=== PATIENT | female | born 1955 | race Caucasian/White ===

== ENCOUNTER 2019-01-11 14:56 | Inpatient (IN) | payer BC ==
[~2019-01-11 14:56] MED LIST: DEXAMETHASONE SOD PHOSPHATE INJ 4 MG/1 ML VIAL ONE; GLYCOPYRROLATE 1 MG/5 ML VIAL ONE; NEOSTIGMINE METHYLSULFATE 10 MG/10 ML VIAL ONE; ONDANSETRON HCL INJ/PF 4 MG/2 ML SDV ONE; PHENYLEPHRINE HCL INJ/PF 10 MG/1 ML SDV ONE; ROCURONIUM BROMIDE INJ 50 MG/5 ML VIAL IV ONE; SUCCINYLCHOLINE CHLORIDE INJ 200 MG/10 ML VIAL ONE
[2019-01-11] MEDS ORDERED: NORMAL SALINE 1000 ML 1,000 ML IV ONE (15:48)
[2019-01-11] MEDS ORDERED: PIPERACILLIN/TAZOBACTAM 3.375 GM VIAL IV ONE (15:52)
[2019-01-11] MEDS ORDERED: VANCOMYCIN HCL INJ 1000 MG VIAL IV ONE (15:52)
[2019-01-11 15:54] LABS: ABSOLUTE BASOPHILS # (AUTO) 0.1 10^3/uL (0.0-0.2); ABSOLUTE EOSINOPHILS # (AUTO) 0.1 10^3/uL (0.0-0.6); ABSOLUTE LYMPHOCYTES (AUTO) 1.2 10^3/uL (0.5-4.7); ABSOLUTE NEUT (AUTO) 15.2 10^3/uL (1.7-8.2); BASOPHILS % (AUTO) 0.3 % (0-2); EOSINOPHILS % (AUTO) 0.4 % (0-6); HEMATOCRIT 35.5 % (36.0-47.0); HEMOGLOBIN 11.7 g/dL (12.0-15.5); LYMPHOCYTES % (AUTO) 6.9 % (13-45); MEAN CORPUSCULAR HEMOGLOBIN 28.7 pg (27.0-33.4); MEAN CORPUSCULAR HGB CONC 33.1 g/dL (32.0-36.0); MEAN CORPUSCULAR VOLUME 87 fl (80-97); MONOCYTES % (AUTO) 5.8 % (3-13); PLATELET COUNT 174 10^3/uL (150-450); RED BLOOD COUNT 4.09 10^6/uL (3.72-5.28); RED CELL DISTRIBUTION WIDTH 16.6 % (11.5-14.0); SEGMENTED NEUTROPHILS % (AUTO) 86.6 % (42-78); TOTAL CELLS COUNTED % (AUTO) 100 %; WHITE BLOOD COUNT 17.5 10^3/uL (4.0-10.5)
[2019-01-11 16:01] LABS: INTERNATIONAL RATION (INR) 1.14; PROTHROMBIN TIME 14.6 SEC (11.4-15.4)
[2019-01-11 16:04] LABS: ALBUMIN 3.7 g/dL (3.5-5.0); ALKALINE PHOSPHATASE 107 U/L (38-126); ANION GAP 6 (5-19); ASPARTATE AMINO TRANSFERASE 23 U/L (14-36); BILIRUBIN,DIRECT 0.3 mg/dL (0.0-0.4); BILIRUBIN,TOTAL 1.2 mg/dL (0.2-1.3); BLOOD UREA NITROGEN 26 mg/dL (7-20); CALCIUM 8.6 mg/dL (8.4-10.2); CARBON DIOXIDE 35 mmol/L (22-30); CHLORIDE 94 mmol/L (98-107); GLUCOSE 154 mg/dL (75-110); POTASSIUM 4.7 mmol/L (3.6-5.0)
--- NOTE | 2019-01-11 16:29 | RADIOLOGY REPORT (SQ) ---
EXAM DESCRIPTION: CHEST SINGLE VIEW COMPLETED DATE/TIME: 01/11/2019 4:02 pm REASON FOR STUDY: Sepsis alert COMPARISON: None. EXAM PARAMETERS: NUMBER OF VIEWS: One view. TECHNIQUE: Single frontal radiographic view of the chest acquired. RADIATION DOSE: NA LIMITATIONS: None. FINDINGS: LUNGS AND PLEURA: No acute infiltrates or effusions. MEDIASTINUM AND HILAR STRUCTURES: No masses. Contour normal. HEART AND VASCULAR STRUCTURES: Cardiomegaly. Pulmonary vasculature normal. HARDWARE: None in the chest. OTHER: Stimulator leads noted over mid dorsal region. Dorsal scoliosis. IMPRESSION: Cardiomegaly. TECHNICAL DOCUMENTATION: JOB ID: [id number] [employer]- All Rights Reserved Reading location - IP/workstation name: [email or web address]
--- NOTE | 2019-01-11 17:04 | RADIOLOGY REPORT (SQ) ---
EXAM DESCRIPTION: ABDOMEN 2 VIEWS COMPLETED DATE/TIME: 01/11/2019 4:36 pm REASON FOR STUDY: abd pain, weak COMPARISON: None. NUMBER OF VIEWS: Two views. TECHNIQUE: Supine and erect/decubitus radiographic images of the abdomen acquired. LIMITATIONS: None. FINDINGS: FREE AIR: None. No abnormal gas collections. LUNG BASES: Clear. BOWEL GAS PATTERN: Nonobstructive pattern. No dilated loops or air fluid levels. CALCIFICATIONS: No suspicious calcifications. SOFT TISSUES: No gross mass or suggestion of organomegaly. HARDWARE: Pacemaker. BONES: Surgical changes in spine. OTHER: No other significant finding. IMPRESSION: NO RADIOGRAPHIC EVIDENCE FOR ACUTE ABDOMINAL DISEASE. TECHNICAL DOCUMENTATION: JOB ID: [id number] [employer]- All Rights Reserved Reading location - IP/workstation name: [email or web address]
[2019-01-11 17:09] LABS: APPEARANCE,URINE SLIGHTLY-CLOUDY; BILIRUBIN,URINE NEGATIVE (NEGATIVE); COLOR,URINE YELLOW; GLUCOSE, URINE NEGATIVE (NEGATIVE); KETONES,URINE NEGATIVE (NEGATIVE); PROTEIN,URINE 30 mg/dL (NEGATIVE)
[2019-01-11 17:17] LABS: URINE AMPHETAMINES SCREEN NEGATIVE; URINE BARBITURATES SCREEN NEGATIVE; URINE BENZODIAZEPINES SCREEN NEGATIVE; URINE COCAINE SCREEN NEGATIVE; URINE MARIJUANA (THC) SCREEN NEGATIVE; URINE METHADONE SCREEN NEGATIVE; URINE PHENCYCLIDINE SCREEN NEGATIVE
[2019-01-11 17:31] LABS: VENOUS BLOOD BASE EXCESS 5.2 mmol/L; VENOUS BLOOD HCO3 33.2 mmol/L (20-32); VENOUS BLOOD PH 7.31 (7.30-7.42)
[2019-01-11 17:37] LABS: A TYPE INFLUENZA AG NEGATIVE (NEGATIVE); B INFLUENZA AG NEGATIVE (NEGATIVE)
[2019-01-11 17:39] LABS: VENOUS BLOOD PCO2 67.8 mmHg (35-63)
[2019-01-11] MEDS ORDERED: NORMAL SALINE 250 ML IV ONE (18:09)
[2019-01-11] MEDS ORDERED: NORMAL SALINE 1000 ML 1,000 ML IV PRN (18:20)
--- NOTE | 2019-01-11 18:31 | RADIOLOGY REPORT (SQ) ---
EXAM DESCRIPTION: CT ABD/PELVIS NO ORAL OR IV COMPLETED DATE/TIME: 01/11/2019 5:47 pm REASON FOR STUDY: abd pain COMPARISON: None. TECHNIQUE: CT scan of the abdomen and pelvis performed with intravenous and oral contrast using beckie simran scanning technique with dynamic intravenous contrast injection. Images reviewed with lung, soft t issue, and bone windows. Reconstructed coronal and sagittal MPR images reviewed. Delayed images for e valuation of the urinary system also acquired. All images stored on PACS. All CT scanners at this facility use dose modulation, iterative reconstruction, and/or weight based d osing when appropriate to reduce radiation dose to as low as reasonably achievable (ALARA). [facility]: Dose Right [facility]: CareDose [facility]: Dose Right [facility]: Teradose 4D [facility]: [employer]SC [employer] CONTRAST TYPE AND DOSE: contrast/concentration: Isovue 350.00 mg/ml; Total Contrast Delivered: 100.0 ml; Total Saline Delivered: 56.0 ml RENAL FUNCTION: Creatinine: 1.06 RADIATION DOSE: CT Rad equipment meets quality standard of care and radiation dose reduction techniq ues were employed. CTDIvol: 20.7 - 20.8 mGy. DLP: 2469 mGy-cm.. LIMITATIONS: None. FINDINGS: LOWER CHEST: Chronic interstitial changes/left basilar atelectasis with left pleural thick ening. . LIVER: No abnormality. There is pneumobilia. The findings could represent post cholecystectomy nichole ges. SPLEEN: Normal size. No focal lesions. PANCREAS: No masses. No significant calcifications. No adjacent inflammation or peripancreatic fluid collections. Pancreatic duct not dilated. GALLBLADDER: Status post cholecystectomy. Changes of pneumobilia. ADRENAL GLANDS: No significant masses or asymmetry. RIGHT KIDNEY AND URETER: No solid masses. No significant calcification. No hydronephrosis or hydroure ter. LEFT KIDNEY AND URETER: No solid masses. No significant calcification. No hydronephrosis or hydrouret er. AORTA AND VESSELS: No aneurysm. No dissection. Renal arteries, SMA, celiac without stenosis. RETROPERITONEUM: No retroperitoneal adenopathy, hemorrhage or masses. BOWEL AND PERITONEAL CAVITY: There is evidence of marked constipation with fecal material throughout the entire colon. At the junction of the rectosigmoid and descending colon there is expanded lumen o f rectosigmoid colon containing a large amount of fecal material measuring 8.4 x 7.8 cm. There is ev idence of rupture of the colon and surrounding pericolonic air extending into the mesentery. (Image n umber [id number] series 5). Distal to this level there is mucosal thickening noted with possibility of a mucosal lesion in this region not excluded (image number [id number] 61/[id number] series 5). Significant pre sacral air is identified. APPENDIX: Normal. PELVIS: Urinary bladder: Distended. Uterus: Absent. ABDOMINAL WALL: No masses. No hernias. BONES: Changes of previous lumbar fusion and laminectomy. OTHER: Extensive retroperitoneal air. Large collection of air extending into the ry IMPRESSION: 1. Findings consistent with a ruptured rectosigmoid colon at the level of a large fecal ith within the rectosigmoid colon expanding the lumen. The possibility of mucosal abnormality distal to the ruptured colon not be excluded. Extensive retroperitoneal air and air within the mesentery. Marked constipation. COMMENT: The findings were discussed with the ER physician and surgeon. TECHNICAL DOCUMENTATION: JOB ID: [id number] Quality ID # [id number]: Final reports with documentation of one or more dose reduction techniques (e.g., Au tomated exposure control, adjustment of the mA and/or kV according to patient size, use of iterative reconstruction technique) 2010 [employer]- All Rights Reserved Reading location - IP/workstation name: [email or web address]
--- NOTE | 2019-01-11 19:01 | PDOC H&P ---
History of Present Illness Admission Date/PCP: 01/11/19 Patient complains of: Abdominal pain, obtunded status History of Present Illness: ALYSON RIVERA is a 63 year old female, morbidly obese, on steroid for lupus daily, with hypothyroidism, hypertension, diffuse arthritis, status post plac ement of back stimulator, who complained of generalized weakness and malaise yesterday evening. There is been worsening of the symptoms throughout the night. According to the , she took 1 dose of powerful laxative because she felt constipated sometimes during the night. This morning patient felt more sick and she was brought to the emergency room by the in the afternoon. In the emergency department, she appeared to be obtunded, very difficult to to awake, no moving all extremities, and responsive only to deep painful physical stimuli. Her most recent blood pressure is 129/67 with a heart rate of 123. A CT scan of the abdomen pelvis has been done revealing a large amount of free air with a possible perforation of the rectosigmoid colon, a large amount of fecal matter throughout the colon as well as the rectum. A fecolyte is identified in the rectosigmoid near the area of the perforation. In addition according to the radiologist, there is rectosigmoid mucosal thickening which is suspicious for neoplastic process. The reports that she had a negative colonoscopy done 3 years ago and she is due for colonoscopy this year. Past Medical History Cardiac Medical History: Reports: Hypertension Endocrine History Note: Hypothyroidism Musculoskeltal Medical History: Reports: Arthritis - Diffuse Musculoskeletal History Note: History of lupus for long time on chronic use of steroids some 5 mg daily Skin Medical History: Reports: Other - Please Past Surgical History Past Surgical History: Reports: Other - Back stimulator implant Social History Smoking Status: Unknown if Ever Smoked Electronic Cigarette use?: No Family History Parental Family History Reviewed: No Children Family History Reviewed: No Sibling(s) Family History Reviewed.: No Medication/Allergy Allergies/Adverse Reactions: promethazine [From Phenergan] Allergy (Unknown, Verified 01/11/19 17:14) Physical Exam Vital Signs: Temp Pulse Resp BP Pulse Ox 102.5 F H 23 H 129/67 H 96 01/11/19 17:11 01/11/19 18:30 01/11/19 18:30 01/11/19 18:30 Intake & Output 01/10/19 01/11/19 01/12/19 06:59 06:59 06:59 Intake Total 1000 Balance 1000 Weight 118 kg Results Laboratory Results: 01/11/19 15:28 01/11/19 15:18 01/11/19 01/11/19 01/11/19 15:18 15:18 15:28 WBC Cancelled RBC Cancelled Hgb Cancelled Hct Cancelled MCV Cancelled MCH Cancelled MCHC Cancelled RDW Cancelled Plt Count Cancelled Seg Neutrophils % Cancelled VBG pH VBG pCO2 VBG HCO3 VBG Base Excess Sodium 134.9 L Potassium 4.7 Chloride 94 L Carbon Dioxide 35 H Anion Gap 6 BUN 26 H Creatinine 1.06 Est GFR ( Amer) > 60 Glucose 154 H Lactic Acid 0.9 Calcium 8.6 Magnesium 2.1 Total Bilirubin 1.2 AST 23 Alkaline Phosphatase 107 Total Protein 7.0 Albumin 3.7 Lipase 10.6 L Urine Color Urine Appearance Urine pH Ur Specific Rena Lara Urine Protein Urine Glucose (UA) Urine Ketones Urine Blood Urine RBC (Auto) 01/11/19 01/11/19 01/11/19 15:28 16:47 17:20 WBC 17.5 H RBC 4.09 Hgb 11.7 L Hct 35.5 L MCV 87 MCH 28.7 MCHC 33.1 RDW 16.6 H Plt Count 174 Seg Neutrophils % 86.6 H VBG pH 7.31 VBG pCO2 67.8 H* VBG HCO3 33.2 H VBG Base Excess 5.2 Sodium Potassium Chloride Carbon Dioxide Anion Gap BUN Creatinine Est GFR ( Amer) Glucose Lactic Acid Calcium Magnesium Total Bilirubin AST Alkaline Phosphatase Total Protein Albumin Lipase Urine Color YELLOW Urine Appearance SLIGHTLY-CLOUDY Urine pH 6.0 Ur Specific Rena Lara 1.020 Urine Protein 30 H Urine Glucose (UA) NEGATIVE Urine Ketones NEGATIVE Urine Blood NEGATIVE Urine RBC (Auto) 4 01/11/19 15:18 Troponin I < 0.012 Impressions: Chest X-Ray 01/11/19 15:04 IMPRESSION: Cardiomegaly. Abdomen X-Ray 01/11/19 15:49 IMPRESSION: NO RADIOGRAPHIC EVIDENCE FOR ACUTE ABDOMINAL DISEASE. Abdomen/Pelvis CT 01/11/19 15:49 IMPRESSION: 1. Findings consistent with a ruptured rectosigmoid colon at the level of a large fecalith within the rectosigmoid colon expanding the lumen. The possibility of mucosal abnormality distal to the ruptured colon not be excluded. Extensive retroperitoneal air and air within the mesentery. Marked constipation. Assessment & Plan - Diagnosis (1) Perforated sigmoid colon Is this a current diagnosis for this admission?: Yes (2) Free intraperitoneal air Is this a current diagnosis for this admission?: Yes (3) Constipation with fecalytes Is this a current diagnosis for this admission?: Yes (4) Lupus Is this a current diagnosis for this admission?: Yes (5) Steroid dependent Is this a current diagnosis for this admission?: Yes (6) Hypothyroidism (acquired) Is this a current diagnosis for this admission?: Yes - Plan Summary Plan Summary: Assessment: Perforated rectosigmoid colon as per CT scan findings Free intraperitoneal air Obtunded neurological status with poor response except painful physical stimuli Leukocytosis 17,000 Normal lactic acid 0.9 Vital signs stable, slight tachycardia 123 Lupus on daily prednisone 5 mg oral Hypertension Plan: Emergent laparotomy, colon resection, colostomy Due to the possibility patient has a neoplasia of the perforated rectosigmoid colon according to the reading radiologist (of verbal report) and the severely obtunded status of the patient most likely secondary to sepsis, I feel like primary anastomosis of the resected colon with loop diverting ileostomy is not recommended IV fluid bolus 2 L, followed by a normal saline IV maintenance rate 125 mL/h Insert Carroll catheter Insert nasogastric tube Antibiotics vancomycin 1 g IV piggyback stat Zosyn 3.375 g IV piggyback x1 Stress dose of steroids preop (100 mg of hydrocortisone) Procedure, risks, benefits, complications, including the possibility of have been discussed with the patient's at length as the patient is unable to provide consent and/or to understand the conversation and she is not aware of the situation; his questions were answered to his satisfaction, and he consented to proceed
[2019-01-11] MEDS ORDERED: BUPIVACAINE HCL 0.5 % INJ/PF 30 ML SDV ONE (19:08)
--- NOTE | 2019-01-11 19:08 | ER Document Report ---
Entered by PIO NEUMANN SCRIBE 01/11/19 [id number] Acting as scribe for:HEATHER NESS MD ED General - General Chief Complaint: Fever Stated Complaint: FEVER Time Seen by Provider: 01/11/19 15:15 Information source: Relative Notes: 63 year old female that presents to the emergency department today with complaints of constipation, fevers, and abdominal pain beginning last night becoming much worse at 0630 this morning. History is being given by the at the bedside as the patient is somewhat altered and somnolent. states that they are visiting grand children in this area and arrived last night. states that last night the patient complained of constipation and she took colace but didn't sleep well all night. states that she woke up at 0630 this morning and "rapidly declined since then". denies any changes in medications or heart disease. TRAVEL OUTSIDE OF THE [place] IN LAST 30 DAYS: No - Related Data Allergies/Adverse Reactions: promethazine [From Phenergan] Allergy (Unknown, Verified 01/11/19 17:14) Past Medical History - General Information source: Relative - Social History Smoking Status: Unknown if Ever Smoked Cigarette use (# per day): No Chew tobacco use (# tins/day): No Frequency of alcohol use: None Drug Abuse: None Lives with: Family Family History: Reviewed & Not Pertinent Patient has suicidal ideation: No Patient has homicidal ideation: No - Medical History Notes: Lupus - Past Medical History Cardiac Medical History: Reports: Hx Hypertension Review of Systems - Review of Systems Notes: being given by at bedside Constitutional: See HPI, Fever Gastrointestinal: See HPI, Abdomen distended, Abdominal pain, Constipation Physical Exam - Vital signs Vitals: Resp BP 21 H 124/50 L 01/11/19 15:03 01/11/19 15:03 - Notes Notes: Physical Exam: General: Somnolent, does arouse to name. HEENT: Normocephalic. Atraumatic. PERRL. Extraocular movements intact. Oropharynx clear. Dry mucous membranes. Neck: Supple. Non-tender. Respiratory: No respiratory distress. Clear and equal breath sounds bilaterally. Cardiovascular: Regular rate and rhythm. Abdominal: Morbidly obese. Abdominal distension. Decreased bowel sounds. Diffuse abdominal tenderness with palpation. Back: No gross abnormalities. Extremities: Moves all four extremities. Upper extremities: Normal inspection. Normal ROM. Lower extremities: Normal inspection. No edema. Normal ROM. Neurological: Slow mumbled speech Skin: Warm. Dry. Normal color. Course - Re-evaluation Re-evalutation: 01/11/19 18:09 Radiologist called me stated that patient has perforated colon. There is no free air shown on acute abdominal series. Case was discussed with Dr. Romano. Will provide 1 L of additional fluid and start patient on fluid rate of 125 an hour. Vancomycin and Zosyn and are then hung empirically due to fever and abdominal pain concern for intra-abdominal infection. - Vital Signs Vital signs: Temp Pulse Resp BP Pulse Ox 98.8 F 91 22 H 117/52 L 99 01/13/19 12:16 01/13/19 12:00 01/13/19 12:16 01/13/19 12:16 01/13/19 12:16 - Laboratory Result Diagrams: 01/13/19 06:00 01/12/19 01:25 Laboratory results interpreted by me: 01/11/19 01/11/19 01/11/19 15:18 15:28 16:47 WBC 17.5 H Hgb 11.7 L Hct 35.5 L RDW 16.6 H Lymph % (Auto) 6.9 L Absolute Neuts (auto) 15.2 H Seg Neutrophils % 86.6 H VBG pCO2 VBG HCO3 Sodium 134.9 L Chloride 94 L Carbon Dioxide 35 H BUN 26 H Est GFR (MDRD) Non-Af 52 L Glucose 154 H Lipase 10.6 L Urine Protein 30 H Urine Urobilinogen 4.0 H Leukocyte Esterase Rfl TRACE H 01/11/19 17:20 WBC Hgb Hct RDW Lymph % (Auto) Absolute Neuts (auto) Seg Neutrophils % VBG pCO2 67.8 H* VBG HCO3 33.2 H Sodium Chloride Carbon Dioxide BUN Est GFR (MDRD) Non-Af Glucose Lipase Urine Protein Urine Urobilinogen Leukocyte Esterase Rfl - Diagnostic Test Radiology reviewed: Reports reviewed - EKG Interpretation by Me Additional EKG results interpreted by me: 01/11/19 18:27 Time 1614 Rate of 101, sinus tachycardia, right bundle branch block, no concerning ST lesions. Time 1614 Rate of 98, sinus rhythm, right bundle branch block, no concerning ST elevations, no significant change from prior Discharge - Discharge Clinical Impression: Rupture of colon Condition: Critical Disposition: ADMITTED INPATIENT Admitting Provider: Leonor Unit Admitted: ICU I personally performed the services described in the documentation, reviewed and edited the documentation which was dictated to the scribe in my presence, and it accurately records my words and actions.
[2019-01-11] MEDS ORDERED: FENTANYL CITRATE INJ/PF 250 MCG/5 ML AMPULE ONE (19:11)
[2019-01-11] MEDS ORDERED: PROPOFOL INJ 200 MG/20 ML VIAL IV ONE (19:11)
[2019-01-11] MEDS ORDERED: HYDROMORPHONE HCL INJ/PF 2 MG/ML AMPULE ONE (19:11)
[2019-01-11] MEDS ORDERED: METHYLPREDNISOLONE INJ 125 MG/2 ML SDV ONE (19:11)
[2019-01-11] MEDS ORDERED: DEXTROSE 50%-WATER 25 GM/50 ML DISP.SYRIN IV PRN (19:24)
[2019-01-11] MEDS ORDERED: DEXTROSE 40% GEL 15 GM TUBE PO PRN ×2 (19:24)
[2019-01-11] MEDS ORDERED: GLUCAGON,HUMAN RECOMB 1 MG INJ SUBCUT PRN (19:24)
[2019-01-11] MEDS ORDERED: PHARMACY COMMUNICATION ORDER MC NR (19:30)
[2019-01-11] MEDS ORDERED: PIPERACILLIN/TAZOBACTAM 4.5 GM VIAL IV PRN (20:53)
[2019-01-11 22:16] LABS: ARTERIAL BLOOD BASE EXCESS 0.8 mmol/L; ARTERIAL BLOOD FIO2 60%; ARTERIAL BLOOD H2CO3 0.86 mmol/L (1.05-1.35); ARTERIAL BLOOD HCO3 23.1 mmol/L (20-24); ARTERIAL BLOOD O2 SATURATION 99.5 % (94-98); ARTERIAL BLOOD PCO2 28.7 mmHg (35-45); ARTERIAL BLOOD PH 7.52 (7.35-7.45); ARTERIAL BLOOD PO2 194.3 mmHg (80-100)
--- NOTE | 2019-01-11 23:15 | EKG REPORT ---
SEVERITY:- ABNORMAL ECG - SINUS RHYTHM RBBB AND LPFB : Confirmed by: Gissel Collado 11-Jan-2019 23:14:22
--- NOTE | 2019-01-11 23:15 | EKG REPORT ---
SEVERITY:- ABNORMAL ECG - SINUS TACHYCARDIA RBBB AND LPFB : Confirmed by: Gissel Collado 11-Jan-2019 23:14:37
[2019-01-11 23:25] LABS: ANION GAP 8 (5-19); BLOOD UREA NITROGEN 21 mg/dL (7-20); CALCIUM 7.2 mg/dL (8.4-10.2); CHLORIDE 105 mmol/L (98-107); GLUCOSE 123 mg/dL (75-110)
[2019-01-11 23:54] LABS: CARBON DIOXIDE 24 mmol/L (22-30)
[2019-01-12] MEDS ORDERED: PIPERACILLIN/TAZOBACTAM 4.5 GM VIAL IV SCH
[2019-01-12] MEDS ORDERED: VANCOMYCIN HCL INJ 1000 MG VIAL IV PRN (01:06)
[2019-01-12] MEDS ORDERED: VANCOMYCIN HCL 1,000 MG in DEXTROSE 5%-WATER 250 ML IV ONE (01:15)
--- NOTE | 2019-01-12 01:32 | Operative Report ---
Nonrecallable Operative Report DATE OF SURGERY: 01/12/19 PREOPERATIVE DIAGNOSIS: sigmoid colon perforation, intraperitoneal free air POSTOPERATIVE DIAGNOSIS: same;. sigmoid stercoral perforated ulcer OPERATION: Rigid proctosigmoidoscopy; left subclavian vein central venous line; expiratory laparotomy; sigmoidectomy with primary anastomosis; diverting loop ileostomy SURGEON: JOSSY ANDREWS ANESTHESIA: GA TISSUE REMOVED OR ALTERED: Perforated sigmoid colon COMPLICATIONS: None ESTIMATED BLOOD LOSS: 200 INTRAOPERATIVE FINDINGS: Perforated sigmoid stercoral ulcer with severe peritoneal cavity fecal contamination PROCEDURE: The procedure was done in the operating room, the patient was placed in supine position general esthesia induced by endotracheal intubation by anesthesiologist, the patient's legs were then placed in a frog-leg position and a rigid proctosigmoidoscopy was done up to about 15 cm, the rectosigmoid mucosa appeared to be normal. However, the scope could not be advanced further despite multiple attempts and the procedure was terminated. Patient was then placed in Trendelenburg position with a towel in between the scapula; the left side of her neck and chest were prepped and draped in usual fashion; the left breast was then pulled downward forward the patient midline. The left subclavian vein was then approached without difficulty just below the midportion of the left clavicle; using a 16-gauge needle good blood return was obtained and a guidewire was inserted through the needle into superior vena cava, the needle was removed, and the insertion point of the guidewire was enlarged with #11 blade and a tissue dilator was which was then removed. A triple-lumen catheter was inserted over the guidewire into the inferior vena cava up to 16 cm. The guidewire was removed, each port of the triple-lumen catheter was then aspirated and flushed with normal saline without difficulty. The triple-lumen catheter was secured to the skin with silk sutures and sterile dressings were applied. The abdomen was then prepped and draped in usual fashion. A midline incision was made from just above the umbilicus down to the symphysis pubis, the subcutaneous fat was divided with Bovie, the linea alba divided with Bovie as well and the peritoneal cavity was entered. Several adhesions between the greater omentum and anterior abdominal wall were taken down bluntly and with the LigaSure without difficulty. The peritoneal cavity was examined and an indurated sigmoid colon was identified in the pelvis. A Bookwalter retractor was then applied and the small bowel was then packed in the right upper quadrant of the abdomen using moist towels and held in position with malleable retractors. The distal sigmoid colon was found to be indurated and thickened starting from just below the superior edge of the pelvis, while the colon proximal to it was found to be normal in diameter, soft, and healthy. The sigmoid colon and the distal descending colon were taken off the retroperitoneum by dividing the peritoneum along the line of Toldt using the LigaSure; the sigmoid colon and the distal left colon were elevated without difficulty. The chosen point of transition between the normal and the diseased sigmoid colon was identified; an opening was made in the mesentery of the sigmoid colon and a ATILIO stapler with blue load was then fired to divide the proximal sigmoid colon from the diseased one; both were then from the retroperitoneum using the LigaSure and the sigmoid mesentery was divided as well. During this phase of the of the surgery, the sigmoid colon ruptured with a spillage of 3 large fecalomas into the pelvis as well as liquid stools. These were rapidly retrieved and the liquid stools were aspirated. Pelvis was irrigated; the distal sigmoid colon was then elevated off the peritoneal reflection circumferentially until good healthy rectosigmoid colon was obtained. When this was accomplished, a Contour TA stapler with a green load was used to divide the sigmoid colon just below the area of perforation. The specimen was removed from the surgical field and sent to pathology. The proximal distal end of colon was found to be easily approximated without tension. At this point, the staple line of each colonic end was divided with Bovie: the 2 ends were placed in end-to-end fashion. The anastomosis was created with a posterior layer of full-thickness 3-0 silk interrupted sutures was placed starting from each corner, equally spaced, and sequentially tied. In addition, 3-0 silk Lembert interrupted sutures were placed posteriorly to approximated the serosa of the posterior. The anterior anastomosis was done with running 3-0 Vicryl sutures;after this, interrupted 3-0 silk Lembert sutures were placed. The mesenteric defect was closed with running locking 3-0 silk suture, the peritoneal cavity was irrigated with 6 L normal saline until clear. Two round 15 F drains were placed in the right and left lower abdomen, respectively following skin incision with #15 blade and placed there the anastomosis and in the pelvis: They were secured to the skin with 2-0 nylon sutures connected to bulb suction. The Bookwalter retractor was then removed, the peritoneal cavity irrigated with warm normal saline until clear, all sponges were removed, and the count was correct x3. The cecum was then identified, the terminal ileum was followed and about 15 cm proximal to the ileocecal valve. An appropriate ileum loop was identified; a circumferential skin incision was made about 3 fingerbreadths lateral and just below the umbilicus. The anterior sheath was divided with Bovie longitudinally, the muscle fibers were split, the posterior sheath was opened with Bovie as well and the chosen loop of small bowel was threaded through the opening and kept in position with a Delma pump. Each limb of the small bowel were secured to the anterior rectus sheath with a simple 2-0 Vicryl suture. The peritoneal cavity was inspected once more, the small bowel was replaced, three #2 nylon retention sutures were placed to the abdominal wall and left untied; the anterior abdominal wall was then closed with a running #1 looped PDS suture. After this was accomplished, the retention sutures were tied loosely. The ileostomy was matured by opening the loop of small bowel on the antimesenteric border with Bovie after a red rubber catheter was threaded through an opening of the mesentery. This was secured to the skin with 3-0 nylon sutures. The edges of the opened small bowel loop were secured to the skin with a three-point 3-0 Vicryl interrupted sutures in a Peg fashion without difficulty. A 4 inch Kerlix roll soaked in Betadine, placed on the anterior abdominal wall, followed by 4 x 4's with ABDs, and tape. The ostomy flange was placed over the ileostomy together with bag. The patient harman erated procedure well and transferred intubated to the ICU in satisfactory conditions.
[2019-01-12 01:44] LABS: ARTERIAL BLOOD BASE EXCESS 0.1 mmol/L; ARTERIAL BLOOD H2CO3 1.69 mmol/L (1.05-1.35); ARTERIAL BLOOD HCO3 27.2 mmol/L (20-24); ARTERIAL BLOOD O2 SATURATION 89.6 % (94-98); ARTERIAL BLOOD PCO2 56.2 mmHg (35-45); ARTERIAL BLOOD PO2 63.3 mmHg (80-100); ARTERIAL BLOOD TOTAL CO2 28.9 mmol/L (21-25)
[2019-01-12 01:49] LABS: ARTERIAL BLOOD FIO2 60%
[2019-01-12 02:02] LABS: ANION GAP 8 (5-19); BLOOD UREA NITROGEN 21 mg/dL (7-20); CARBON DIOXIDE 27 mmol/L (22-30); CHLORIDE 104 mmol/L (98-107); GLUCOSE 156 mg/dL (75-110); POTASSIUM 4.2 mmol/L (3.6-5.0)
[2019-01-12 02:03] LABS: ABSOLUTE LYMPHOCYTES (AUTO) 1.3 10^3/uL (0.5-4.7); ABSOLUTE MONOCYTES (AUTO) 0.7 10^3/uL (0.1-1.4); ABSOLUTE NEUT (AUTO) 15.5 10^3/uL (1.7-8.2); BASOPHILS % (AUTO) 0.1 % (0-2); EOSINOPHILS % (AUTO) 0.1 % (0-6); HEMATOCRIT 29.1 % (36.0-47.0); LYMPHOCYTES % (AUTO) 7.5 % (13-45); MEAN CORPUSCULAR HEMOGLOBIN 28.8 pg (27.0-33.4); MEAN CORPUSCULAR HGB CONC 32.7 g/dL (32.0-36.0); MEAN CORPUSCULAR VOLUME 88 fl (80-97); MONOCYTES % (AUTO) 3.8 % (3-13); PLATELET COUNT 149 10^3/uL (150-450); RED CELL DISTRIBUTION WIDTH 16.8 % (11.5-14.0); SEGMENTED NEUTROPHILS % (AUTO) 88.5 % (42-78); TOTAL CELLS COUNTED % (AUTO) 100 %; WHITE BLOOD COUNT 17.5 10^3/uL (4.0-10.5)
[2019-01-12 02:04] LABS: HEMOGLOBIN 9.5 g/dL (12.0-15.5)
--- NOTE | 2019-01-12 02:05 | RADIOLOGY REPORT (SQ) ---
XR CHEST 1 VIEW EXAM DATE: 01/12/2019 12:00 AM [employer] HISTORY: Tube placement. COMPARISON: 01/11/2019 FINDINGS: The endotracheal tube is 2 cm from the sreedhar. Enteric tube terminates in the stomach. The left central venous line is in the SVC. The heart size is mildly enlarged. No large pleural effusions or pneumothorax. IMPRESSION: Support devices as above.
[2019-01-12] MEDS ORDERED: MIDAZOLAM HCL 50 MG/100 ML RTUINJ ONE (02:28)
[2019-01-12 02:29] LABS: CALCIUM 7.1 mg/dL (8.4-10.2)
[2019-01-12] MEDS: DEXTROSE 5%-LACTATED RINGERS 1,000 ML IV PRN ×2 (02:43→10:40)
[2019-01-12] MEDS ORDERED: MIDAZOLAM HCL 50 MG/100 ML RTUINJ IV PRN (02:52)
[2019-01-12] MEDS: PANTOPRAZOLE SODIUM 40 MG VIAL IV SCH ×2 (02:58→10:41)
[2019-01-12] MEDS: PIPERACILLIN SODIUM/TAZOBACTAM 4.5 GM in NORMAL SALINE 100 ML IV SCH ×4 (03:18→17:29)
[2019-01-12 03:50] LABS: ARTERIAL BLOOD BASE EXCESS -0.6 mmol/L; ARTERIAL BLOOD O2 SATURATION 98.4 % (94-98); ARTERIAL BLOOD PH 7.31 (7.35-7.45); ARTERIAL BLOOD PO2 136.4 mmHg (80-100); ARTERIAL BLOOD TOTAL CO2 27.7 mmol/L (21-25)
[2019-01-12 03:51] LABS: ARTERIAL BLOOD FIO2 80%
[2019-01-12] MEDS ORDERED: INFLUENZA QUAD (6MOS+) 2019-20 VAC 0.5 ML SYR IM ONE (04:54)
[2019-01-12] MEDS ORDERED: HYDROCORTISONE SOD SUCCINATE INJ/PF 100 MG/2 ML SDV IV SCH (06:00)
--- NOTE | 2019-01-12 09:03 | PDOC PROGRESS REPORT ---
Subjective Progress Note for:: 01/12/19 Subjective:: Patient is comfortable intubated but responsive to questions with nodding Reason For Visit: PERFORATED COLON Physical Exam Vital Signs: Temp Pulse Resp BP Pulse Ox 99.7 F 91 16 113/51 L 94 01/12/19 08:00 01/12/19 08:00 01/12/19 08:00 01/12/19 08:00 01/12/19 08:00 Intake & Output 01/11/19 01/12/19 01/13/19 06:59 06:59 06:59 Intake Total 7450 Output Total 6100 1755 275 Balance -6100 5695 -275 Weight 117.5 kg General appearance: PRESENT: mild distress, obese Respiratory exam: PRESENT: clear to auscultation tricia Cardiovascular exam: PRESENT: RRR GI/Abdominal exam: PRESENT: distended, soft, other - Midline incision covered by dressings clean dry intact; ileostomy pink with gas in the bag; right and left lower abdominal drains with a clear serosanguineous fluid Neurological exam: PRESENT: awake, oriented to person, oriented to situation Results Laboratory Results: 01/12/19 01:25 01/12/19 01:25 01/11/19 01/11/19 01/11/19 15:18 15:18 15:28 WBC Cancelled RBC Cancelled Hgb Cancelled Hct Cancelled MCV Cancelled MCH Cancelled MCHC Cancelled RDW Cancelled Plt Count Cancelled Seg Neutrophils % Cancelled Carbonic Acid HCO3/H2CO3 Ratio ABG pH ABG pCO2 ABG pO2 ABG HCO3 ABG O2 Saturation ABG Base Excess VBG pH VBG pCO2 VBG HCO3 VBG Base Excess FiO2 Sodium 134.9 L Potassium 4.7 Chloride 94 L Carbon Dioxide 35 H Anion Gap 6 BUN 26 H Creatinine 1.06 Est GFR ( Amer) > 60 Est GFR (Non-Af Amer) Glucose 154 H Lactic Acid 0.9 Calcium 8.6 Magnesium 2.1 Total Bilirubin 1.2 AST 23 Alkaline Phosphatase 107 Total Protein 7.0 Albumin 3.7 Lipase 10.6 L Urine Color Urine Appearance Urine pH Ur Specific Garber Urine Protein Urine Glucose (UA) Urine Ketones Urine Blood Urine RBC (Auto) Blood Type Antibody Screen 01/11/19 01/11/19 01/11/19 15:28 16:47 17:20 WBC 17.5 H RBC 4.09 Hgb 11.7 L Hct 35.5 L MCV 87 MCH 28.7 MCHC 33.1 RDW 16.6 H Plt Count 174 Seg Neutrophils % 86.6 H Carbonic Acid HCO3/H2CO3 Ratio ABG pH ABG pCO2 ABG pO2 ABG HCO3 ABG O2 Saturation ABG Base Excess VBG pH 7.31 VBG pCO2 67.8 H* VBG HCO3 33.2 H VBG Base Excess 5.2 FiO2 Sodium Potassium Chloride Carbon Dioxide Anion Gap BUN Creatinine Est GFR ( Amer) Est GFR (Non-Af Amer) Glucose Lactic Acid Calcium Magnesium Total Bilirubin AST Alkaline Phosphatase Total Protein Albumin Lipase Urine Color YELLOW Urine Appearance SLIGHTLY-CLOUDY Urine pH 6.0 Ur Specific Garber 1.020 Urine Protein 30 H Urine Glucose (UA) NEGATIVE Urine Ketones NEGATIVE Urine Blood NEGATIVE Urine RBC (Auto) 4 Blood Type Antibody Screen 01/11/19 01/11/19 01/11/19 20:01 21:39 21:39 WBC RBC Hgb Hct MCV MCH MCHC RDW Plt Count Seg Neutrophils % Carbonic Acid 0.86 L HCO3/H2CO3 Ratio 26:1 ABG pH 7.52 H ABG pCO2 28.7 L ABG pO2 194.3 H ABG HCO3 23.1 ABG O2 Saturation 99.5 H ABG Base Excess 0.8 VBG pH VBG pCO2 VBG HCO3 VBG Base Excess FiO2 60% Sodium Cancelled Potassium Cancelled Chloride Cancelled Carbon Dioxide Cancelled Anion Gap Cancelled BUN Cancelled Creatinine Cancelled Est GFR ( Amer) Cancelled Est GFR (Non-Af Amer) Cancelled Glucose Cancelled Lactic Acid Calcium Cancelled Magnesium Total Bilirubin AST Alkaline Phosphatase Total Protein Albumin Lipase Urine Color Urine Appearance Urine pH Ur Specific Garber Urine Protein Urine Glucose (UA) Urine Ketones Urine Blood Urine RBC (Auto) Blood Type O POSITIVE Antibody Screen NEGATIVE 01/11/19 01/12/19 01/12/19 22:26 01:25 01:25 WBC 17.5 H RBC 3.30 L Hgb 9.5 L D Hct 29.1 L MCV 88 MCH 28.8 MCHC 32.7 RDW 16.8 H Plt Count 149 L Seg Neutrophils % 88.5 H Carbonic Acid HCO3/H2CO3 Ratio ABG pH ABG pCO2 ABG pO2 ABG HCO3 ABG O2 Saturation ABG Base Excess VBG pH VBG pCO2 VBG HCO3 VBG Base Excess FiO2 Sodium 137.3 138.9 Potassium 4.0 4.2 Chloride 105 104 Carbon Dioxide 24 D 27 Anion Gap 8 8 BUN 21 H 21 H Creatinine 0.90 0.96 Est GFR ( Amer) > 60 > 60 Est GFR (Non-Af Amer) Glucose 123 H 156 H Lactic Acid Calcium 7.2 L 7.1 L Magnesium Total Bilirubin AST Alkaline Phosphatase Total Protein Albumin Lipase Urine Color Urine Appearance Urine pH Ur Specific Garber Urine Protein Urine Glucose (UA) Urine Ketones Urine Blood Urine RBC (Auto) Blood Type Antibody Screen 01/12/19 01/12/19 01:25 03:30 WBC RBC Hgb Hct MCV MCH MCHC RDW Plt Count Seg Neutrophils % Carbonic Acid 1.69 H 1.60 H HCO3/H2CO3 Ratio 16:1 16:1 ABG pH 7.30 L 7.31 L ABG pCO2 56.2 H 53.0 H ABG pO2 63.3 L 136.4 H ABG HCO3 27.2 H 26.0 H ABG O2 Saturation 89.6 L 98.4 H ABG Base Excess 0.1 -0.6 VBG pH VBG pCO2 VBG HCO3 VBG Base Excess FiO2 60% 80% Sodium Potassium Chloride Carbon Dioxide Anion Gap BUN Creatinine Est GFR ( Amer) Est GFR (Non-Af Amer) Glucose Lactic Acid Calcium Magnesium Total Bilirubin AST Alkaline Phosphatase Total Protein Albumin Lipase Urine Color Urine Appearance Urine pH Ur Specific Garber Urine Protein Urine Glucose (UA) Urine Ketones Urine Blood Urine RBC (Auto) Blood Type Antibody Screen 01/11/19 15:18 Troponin I < 0.012 Impressions: Abdomen X-Ray 01/11/19 15:49 IMPRESSION: NO RADIOGRAPHIC EVIDENCE FOR ACUTE ABDOMINAL DISEASE. Abdomen/Pelvis CT 01/11/19 15:49 IMPRESSION: 1. Findings consistent with a ruptured rectosigmoid colon at the level of a large fecalith within the rectosigmoid colon expanding the lumen. The possibility of mucosal abnormality distal to the ruptured colon not be excluded. Extensive retroperitoneal air and air within the mesentery. Marked constipation. Chest X-Ray 01/12/19 00:00 IMPRESSION: Support devices as above. Assessment & Plan - Diagnosis (1) Perforated sigmoid colon Is this a current diagnosis for this admission?: Yes (2) Free intraperitoneal air Is this a current diagnosis for this admission?: Yes (3) Constipation with fecalytes Is this a current diagnosis for this admission?: Yes (4) Lupus Is this a current diagnosis for this admission?: Yes (5) Steroid dependent Is this a current diagnosis for this admission?: Yes (6) Hypothyroidism (acquired) Is this a current diagnosis for this admission?: Yes - Time Time Spent with patient: 25-34 minutes - Plan Summary Plan Summary: Assessment: Postoperative day #0 following laparotomy, sigmoidectomy, primary anastomosis, diverting loop ileostomy for perforated sigmoid stercoral ulcer Vital signs stable patient afebrile Patient awake with hypercarbia most likely related to sedation Patient currently on pressure support Persistent leukocytosis 17.5 Remaining blood work within normal limits Nasogastric tube output 100 Carroll catheter output good 2075 mL Bilateral lower abdominal drain output scant Plan: Continue n.p.o. IV fluids Continue IV antibiotics vancomycin and Zosyn Steroid taper as per locomotive inspector down to physiologic dose Extubation today as per locomotive inspector
[2019-01-12] MEDS: ENOXAPARIN SODIUM INJ 40 MG/0.4 ML DISP.SYRIN SUBCUT SCH (10:42)
[2019-01-12] MEDS: ACETAMINOPHEN 1,000 MG/100 ML RTUPB IV SCH ×3 (11:14→23:42)
[2019-01-12 11:36] LABS: ARTERIAL BLOOD H2CO3 1.44 mmol/L (1.05-1.35); ARTERIAL BLOOD HCO3 27.5 mmol/L (20-24); ARTERIAL BLOOD O2 SATURATION 97.2 % (94-98); ARTERIAL BLOOD PCO2 47.7 mmHg (35-45); ARTERIAL BLOOD PH 7.38 (7.35-7.45); ARTERIAL BLOOD PO2 96.7 mmHg (80-100)
[2019-01-12 11:37] LABS: ARTERIAL BLOOD FIO2 50%
[2019-01-12] MEDS ORDERED: FENTANYL CITRATE INJ/PF 100 MCG/2 ML AMPUL IV PRN (11:57)
[2019-01-12] MEDS ORDERED: VANCOMYCIN HCL INJ 1000 MG VIAL IV ONE (13:00)
[2019-01-12] MEDS: HYDROCORTISONE SOD SUCCINATE INJ/PF 100 MG/2 ML SDV IV SCH ×2 (14:02→22:26)
[2019-01-12] MEDS: FENTANYL CITRATE INJ/PF 100 MCG/2 ML AMPUL IV PRN ×2 (14:03→17:15)
[2019-01-12] MEDS: VANCOMYCIN HCL 750 MG in DEXTROSE 5%-WATER 250 ML IV SCH (15:30)
[2019-01-12] MEDS: RINGERS SOLUTION,LACTATED 1,000 ML IV PRN (15:34)
--- NOTE | 2019-01-12 20:02 | PDOC PROGRESS REPORT ---
Subjective Progress Note for:: 01/12/19 Subjective:: Patient admitted to the ICU after surgery for perforated colon. Appears to be a perforation related to a stercolic ulcer. She was suitable for an and SBT this morning and was placed on a weaning profile. She was able to lift her head and follow commands after the Versed was discontinued. Reason For Visit: PERFORATED COLON Physical Exam Vital Signs: Temp Pulse Resp BP Pulse Ox 99.1 F 96 21 H 106/57 L 96 01/12/19 18:00 01/12/19 16:00 01/12/19 18:00 01/12/19 16:16 01/12/19 18:00 Intake & Output 01/11/19 01/12/19 01/13/19 06:59 06:59 06:59 Intake Total 7450 1563 Output Total 6100 1755 1225 Balance -6100 5695 338 Weight 117.5 kg 117.5 kg Physical Exam: Intubated, nontoxic, obese appearing 63-year-old female no active distress. BMI 42 General appearance: PRESENT: no acute distress, cooperative, morbidly obese Head exam: PRESENT: atraumatic, normocephalic Eye exam: PRESENT: conjunctiva pink, EOMI, PERRLA. ABSENT: conjunctival injection, nystagmus, scleral icterus Mouth exam: PRESENT: dry mucosa, neck supple Neck exam: ABSENT: carotid bruit, JVD, lymphadenopathy, tenderness, thyromegaly, tracheal deviation Respiratory exam: PRESENT: clear to auscultation tricia, unlabored. ABSENT: accessory muscle use, retraction, tachypnea, wheezes Cardiovascular exam: PRESENT: RRR, +S1, +S2. ABSENT: rubs, systolic murmur, tac hycardia Pulses: PRESENT: normal carotid pulses, +1 pedal pulses bilateral Vascular exam: PRESENT: normal capillary refill GI/Abdominal exam: PRESENT: diminished bowel sounds, firm, hypoactive bowel sounds, tenderness. ABSENT: ascites, distended, guarding, mass, organolmegaly, rebound, rigid Additonal comments: Mucosa of diverting colostomy is pink and appears healthy Rectal exam: PRESENT: deferred Gentrourinary exam: PRESENT: indwelling catheter Extremities exam: PRESENT: joint swelling, pedal edema Musculoskeletal exam: PRESENT: deformity Additional comments: Sausagelike appearance of fingers Neurological exam: PRESENT: alert, awake. ABSENT: motor sensory deficit Psychiatric exam: PRESENT: appropriate affect Skin exam: PRESENT: dry, intact, normal color, warm. ABSENT: cyanosis, er ythema, jaundice, mottled, pallor, petechiae, rash, urticaria, vesicles Results Laboratory Results: 01/12/19 01:25 01/12/19 01:25 01/11/19 01/11/19 01/11/19 20:01 21:39 21:39 WBC RBC Hgb Hct MCV MCH MCHC RDW Plt Count Seg Neutrophils % Carbonic Acid 0.86 L HCO3/H2CO3 Ratio 26:1 ABG pH 7.52 H ABG pCO2 28.7 L ABG pO2 194.3 H ABG HCO3 23.1 ABG O2 Saturation 99.5 H ABG Base Excess 0.8 FiO2 60% Sodium Cancelled Potassium Cancelled Chloride Cancelled Carbon Dioxide Cancelled Anion Gap Cancelled BUN Cancelled Creatinine Cancelled Est GFR ( Amer) Cancelled Est GFR (Non-Af Amer) Cancelled Glucose Cancelled Calcium Cancelled Blood Type O POSITIVE Antibody Screen NEGATIVE 01/11/19 01/12/19 01/12/19 22:26 01:25 01:25 WBC 17.5 H RBC 3.30 L Hgb 9.5 L D Hct 29.1 L MCV 88 MCH 28.8 MCHC 32.7 RDW 16.8 H Plt Count 149 L Seg Neutrophils % 88.5 H Carbonic Acid HCO3/H2CO3 Ratio ABG pH ABG pCO2 ABG pO2 ABG HCO3 ABG O2 Saturation ABG Base Excess FiO2 Sodium 137.3 138.9 Potassium 4.0 4.2 Chloride 105 104 Carbon Dioxide 24 D 27 Anion Gap 8 8 BUN 21 H 21 H Creatinine 0.90 0.96 Est GFR ( Amer) > 60 > 60 Est GFR (Non-Af Amer) Glucose 123 H 156 H Calcium 7.2 L 7.1 L Blood Type Antibody Screen 01/12/19 01/12/19 01/12/19 01:25 03:30 11:18 WBC RBC Hgb Hct MCV MCH MCHC RDW Plt Count Seg Neutrophils % Carbonic Acid 1.69 H 1.60 H 1.44 H HCO3/H2CO3 Ratio 16:1 16:1 19:1 ABG pH 7.30 L 7.31 L 7.38 ABG pCO2 56.2 H 53.0 H 47.7 H ABG pO2 63.3 L 136.4 H 96.7 ABG HCO3 27.2 H 26.0 H 27.5 H ABG O2 Saturation 89.6 L 98.4 H 97.2 ABG Base Excess 0.1 -0.6 2.0 FiO2 60% 80% 50% Sodium Potassium Chloride Carbon Dioxide Anion Gap BUN Creatinine Est GFR ( Amer) Est GFR (Non-Af Amer) Glucose Calcium Blood Type Antibody Screen 01/11/19 15:18 Troponin I < 0.012 Impressions: Abdomen X-Ray 01/11/19 15:49 IMPRESSION: NO RADIOGRAPHIC EVIDENCE FOR ACUTE ABDOMINAL DISEASE. Abdomen/Pelvis CT 01/11/19 15:49 IMPRESSION: 1. Findings consistent with a ruptured rectosigmoid colon at the level of a large fecalith within the rectosigmoid colon expanding the lumen. The possibility of mucosal abnormality distal to the ruptured colon not be excluded. Extensive retroperitoneal air and air within the mesentery. Marked constipation. Chest X-Ray 01/12/19 00:00 IMPRESSION: Support devices as above. Status: Image reviewed by me Assessment & Plan - Diagnosis (2) Lupus (systemic lupus erythematosus) Qualifiers: Systemic lupus erythematosus type: unspecified Systemic lupus erythematosus organ involvement: other Qualified Code(s): M32.19 - Other organ or system involvement in systemic lupus erythematosus Is this a current diagnosis for this admission?: Yes (3) Immunosuppression due to drug therapy Is this a current diagnosis for this admission?: Yes (4) Chronic steroid use Is this a current diagnosis for this admission?: Yes (5) Morbid exogenous obesity Is this a current diagnosis for this admission?: Yes (6) Obstructive sleep apnea hypopnea, moderate Is this a current diagnosis for this admission?: Yes - Time Time Spent with patient: 35 or more minutes Total Critical Time (Minutes): 70 Level of Care: ICU Medications reviewed and adjusted accordingly: Yes Anticipated discharge: Home, Home with Homehealth Within: within 72 hours - Inpatient Certification Based on my medical assessment, after consideration of the patient's comorbidities, presenting symptoms, or acuity I expect that the services needed warrant INPATIENT care.: Yes I certify that my determination is in accordance with my understanding of Medicare's requirements for reasonable and necessary INPATIENT services [42 CFR 412.3e].: Yes Medical Necessity: Significant Comorbidiites Make Outpatient Treatment Too Risky, Need For IV Fluids, Need for Pain Control, Need for IV Antibiotics, Risk of Diagnosis Which Will Require Inpatient Eval/Care/Monitoring Post Hospital Care: D/C Equipment Mechanic Specialist Documentation - Plan Summary Plan Summary: 01.12.2019: Patient seen and examined throughout the day on multiple occasions. She met suitability for weaning from the ventilator and was successfully extubated after morning rounds. The use of antifungals is warranted in few situations. Given her immunosuppressed state she would be a candidate for this. Given her non-shock state and antifungal like Diflucan would be indicated. Treatment for her peritonitis should be for 5 to 7 days. Patient also endorses that she is on BiPAP at night. She does not know the pressure settings. We will start her on this this evening to prevent atelectasis. We will start a aggressive rehab program including incentive spirometry as well. She is at high risk for postoperative respiratory failure given her morbid obesity and her history of sleep apnea. We will hold on her CellCept and Plaqeunil at this point and wean steroids. Patient has a diverting colostomy but has a primary anastomosis of the removed segments. Follow the mucosa which appears healthy today and watch for stool output. She has been on nortryptilline. Will need to follow for withdraw and start low dose to prevent withdraw related seizures. I have added Dilaudid for pain control. Her lupus flares appear to be more joint related. She denies any renal involvement or lung involvement. The care of the patient is a dynamic an ongoing process throughout the ICU. Events of the day are captured in a one-time note format in an attempt to describe the last 24 hours. Orders done or given are not always reflected by the timing of the placement in the chart. This patient requires critical care secondary to: Acute respiratory failure, and the weaning of mechanical ventilation. Medical power of manufacturers representative is her . He was updated at bedside
[2019-01-12] MEDS: NORTRIPTYLINE HCL 25 MG CAPSULE PO SCH (22:26)
[2019-01-12] MEDS: FLUCONAZOLE 400 MG/NS RTU 400 MG/200 ML RTUPB IV SCH (22:26)
[2019-01-12] MEDS: HYDROMORPHONE HCL INJ/PF 2 MG/ML AMPULE IV PRN (23:43)
[2019-01-13] MEDS: PIPERACILLIN SODIUM/TAZOBACTAM 4.5 GM in NORMAL SALINE 100 ML IV SCH ×4 (00:07→18:19)
[2019-01-13] MEDS: VANCOMYCIN HCL 750 MG in DEXTROSE 5%-WATER 250 ML IV SCH ×2 (04:55→16:38)
[2019-01-13] MEDS: ACETAMINOPHEN 1,000 MG/100 ML RTUPB IV SCH ×3 (05:12→18:20)
[2019-01-13] MEDS: RINGERS SOLUTION,LACTATED 1,000 ML IV PRN (05:13)
[2019-01-13] MEDS: HYDROCORTISONE SOD SUCCINATE INJ/PF 100 MG/2 ML SDV IV SCH ×3 (05:15→21:57)
[2019-01-13 06:25] LABS: ABSOLUTE LYMPHOCYTES (AUTO) 0.9 10^3/uL (0.5-4.7); ABSOLUTE MONOCYTES (AUTO) 0.9 10^3/uL (0.1-1.4); ABSOLUTE NEUT (AUTO) 11.8 10^3/uL (1.7-8.2); BASOPHILS % (AUTO) 0.1 % (0-2); HEMATOCRIT 23.6 % (36.0-47.0); LYMPHOCYTES % (AUTO) 6.6 % (13-45); MEAN CORPUSCULAR HEMOGLOBIN 28.5 pg (27.0-33.4); MEAN CORPUSCULAR HGB CONC 32.8 g/dL (32.0-36.0); MEAN CORPUSCULAR VOLUME 87 fl (80-97); MONOCYTES % (AUTO) 6.8 % (3-13); PLATELET COUNT 140 10^3/uL (150-450); RED BLOOD COUNT 2.71 10^6/uL (3.72-5.28); RED CELL DISTRIBUTION WIDTH 16.7 % (11.5-14.0); SEGMENTED NEUTROPHILS % (AUTO) 86.5 % (42-78); TOTAL CELLS COUNTED % (AUTO) 100 %; WHITE BLOOD COUNT 13.6 10^3/uL (4.0-10.5)
[2019-01-13 06:45] LABS: HEMOGLOBIN 7.7 g/dL (12.0-15.5)
--- NOTE | 2019-01-13 08:29 | RADIOLOGY REPORT (SQ) ---
EXAM DESCRIPTION: CHEST SINGLE VIEW COMPLETED DATE/TIME: 01/13/2019 7:14 am REASON FOR STUDY: ETT placement COMPARISON: 2018 EXAM PARAMETERS: NUMBER OF VIEWS: One view. TECHNIQUE: Single frontal radiographic view of the chest acquired. RADIATION DOSE: NA LIMITATIONS: None. FINDINGS: LUNGS AND PLEURA: There is evidence of bibasilar infiltrates consistent with pneumonia or atelectasis. MEDIASTINUM AND HILAR STRUCTURES: No masses. Contour normal. HEART AND VASCULAR STRUCTURES: Cardiomegaly. Pulmonary vasculature is normal. BONES: No acute findings. HARDWARE: Interval extubation. OTHER: NG tube passing to stomach. Left central venous line overlying SVC. Stimulator wires in uppe r dorsal region. IMPRESSION: Cardiomegaly. Bibasilar infiltrates or atelectasis. Interval extubation. TECHNICAL DOCUMENTATION: JOB ID: [id number] [employer]- All Rights Reserved Reading location - IP/workstation name: [email or web address]
[2019-01-13] MEDS: ENOXAPARIN SODIUM INJ 40 MG/0.4 ML DISP.SYRIN SUBCUT SCH (10:39)
[2019-01-13] MEDS: HYDROMORPHONE HCL INJ/PF 2 MG/ML AMPULE IV PRN ×4 (10:40→22:27)
--- NOTE | 2019-01-13 15:51 | PDOC PROGRESS REPORT ---
Subjective Progress Note for:: 01/13/19 Reason For Visit: PERFORATED COLON Physical Exam Vital Signs: Temp Pulse Resp BP Pulse Ox 98.8 F 103 H 18 107/57 L 97 01/13/19 14:16 01/13/19 14:00 01/13/19 14:16 01/13/19 14:16 01/13/19 14:16 Intake & Output 01/12/19 01/13/19 01/14/19 06:59 06:59 06:59 Intake Total 7450 3163 610 Output Total 1755 2135 290 Balance 5695 1028 320 Weight 117.5 kg 120.2 kg Results Laboratory Results: 01/13/19 06:00 01/12/19 01:25 01/13/19 01/13/19 06:00 06:00 WBC 13.6 H RBC 2.71 L Hgb 7.7 L Hct 23.6 L MCV 87 MCH 28.5 MCHC 32.8 RDW 16.7 H Plt Count 140 L Seg Neutrophils % 86.5 H Phosphorus 4.0 Magnesium 2.0 01/11/19 16:47 Catheterized Urine Urine Culture - Final NO GROWTH 2 DAYS 01/11/19 15:18 Troponin I < 0.012 Impressions: Abdomen X-Ray 01/11/19 15:49 IMPRESSION: NO RADIOGRAPHIC EVIDENCE FOR ACUTE ABDOMINAL DISEASE. Abdomen/Pelvis CT 01/11/19 15:49 IMPRESSION: 1. Findings consistent with a ruptured rectosigmoid colon at the level of a large fecalith within the rectosigmoid colon expanding the lumen. The possibility of mucosal abnormality distal to the ruptured colon not be excluded. Extensive retroperitoneal air and air within the mesentery. Marked constipation. Chest X-Ray 01/13/19 06:00 IMPRESSION: Cardiomegaly. Bibasilar infiltrates or atelectasis. Interval extubation. Assessment & Plan - Diagnosis (1) Perforated sigmoid colon Is this a current diagnosis for this admission?: Yes - Time Time Spent with patient: Less than 15 minutes - Plan Summary Plan Summary: Is a 63-year-old morbidly obese female with sigmoid colon perforation. She has a colorectal anastomosis and a diverting loop ileostomy. Her ileostomy is productive of air. I will start her on a full liquid diet. I have changed her midline packing. I have instructed the nurses to do damp to dry dressing changes twice daily. I believe the patient is safe for transfer to the floor. Out of bed, ambulate. Use incentive spirometer 10 times every hour, while awake. DVT prophylaxis with Lovenox.
--- NOTE | 2019-01-13 19:40 | PDOC PROGRESS REPORT ---
Subjective Progress Note for:: 01/13/19 Subjective:: 01.13.19: Patient was successfully weaned and liberated from mechanical ventilation. She is remained hemodynamically stable. Diverting ostomy has clear liquid. Mucosal pink and healty NGT output has been minimal. Removed earlier today. Tolerated BiPap. No significant pain. Started on Diflucan secondary to immunesuppression regime with bowel perfora tion. 01.12.19:Patient admitted to the ICU after surgery for perforated colon. Appear s to be a perforation related to a stercolic ulcer. She was suitable for an and SBT this morning and was placed on a weaning profile. She was able to lift her head and follow commands after the Versed was discontinued. Reason For Visit: PERFORATED COLON Physical Exam Vital Signs: Temp Pulse Resp BP Pulse Ox 99.1 F 96 12 106/57 L 97 01/12/19 18:00 01/12/19 16:00 01/13/19 00:21 01/12/19 16:16 01/13/19 00:21 Intake & Output 01/11/19 01/12/19 01/13/19 06:59 06:59 06:59 Intake Total 7450 1763 Output Total 6100 1755 1225 Balance -6100 5695 538 Weight 117.5 kg 117.5 kg Physical Exam: Obese appearing nontoxic extubated 63-year-old white female in no active distress. General appearance: PRESENT: no acute distress, cooperative, morbidly obese Eye exam: PRESENT: conjunctiva pink, EOMI, PERRLA. ABSENT: conjunctival injection, nystagmus, scleral icterus Neck exam: ABSENT: carotid bruit, JVD, lymphadenopathy, thyromegaly, tracheal deviation, tracheostomy Respiratory exam: PRESENT: clear to auscultation tricia, unlabored. ABSENT: acc essory muscle use, stridor, tachypnea, wheezes Cardiovascular exam: PRESENT: RRR, +S1 - Distant heart sounds, +S2 Pulses: PRESENT: +1 pedal pulses bilateral Vascular exam: PRESENT: normal capillary refill GI/Abdominal exam: PRESENT: diminished bowel sounds, tenderness - Minimal at incision site. ABSENT: ascites, distended, firm, mass, Rainey's sign, organolmegaly, rebound, rigid Gentrourinary exam: PRESENT: indwelling catheter Extremities exam: PRESENT: joint swelling, pedal edema. ABSENT: tenderness Musculoskeletal exam: PRESENT: deformity - Swollen joints chronically. No acute swelling or erythema. ABSENT: dislocation Neurological exam: PRESENT: alert, awake, oriented to person, oriented to place, oriented to time, oriented to situation, CN II-XII grossly intact, motor sensory deficit. ABSENT: aphasic Psychiatric exam: PRESENT: appropriate affect Skin exam: PRESENT: dry, intact, normal color. ABSENT: cyanosis, erythema, jaundice, mottled, pallor, petechiae, rash, urticaria, vesicles Results Laboratory Results: 01/12/19 01:25 01/12/19 01:25 01/12/19 01/12/19 03:30 11:18 Carbonic Acid 1.60 H 1.44 H HCO3/H2CO3 Ratio 16:1 19:1 ABG pH 7.31 L 7.38 ABG pCO2 53.0 H 47.7 H ABG pO2 136.4 H 96.7 ABG HCO3 26.0 H 27.5 H ABG O2 Saturation 98.4 H 97.2 ABG Base Excess -0.6 2.0 FiO2 80% 50% 01/11/19 15:18 Troponin I < 0.012 Labs- All tests 24 hr 01/13/19 01/13/19 01/13/19 06:00 06:00 06:00 WBC 13.6 H RBC 2.71 L Hgb 7.7 L Hct 23.6 L MCV 87 MCH 28.5 MCHC 32.8 RDW 16.7 H Plt Count 140 L Lymph % (Auto) 6.6 L Walsh % (Auto) 6.8 Eos % (Auto) 0.0 Baso % (Auto) 0.1 Absolute Neuts (auto) 11.8 H Absolute Lymphs (auto) 0.9 Absolute Monos (auto) 0.9 Absolute Eos (auto) 0.0 Absolute Basos (auto) 0.0 Seg Neutrophils % 86.5 H Hemoglobin A1c % 6.6 H Phosphorus 4.0 Magnesium 2.0 Impressions: Abdomen X-Ray 01/11/19 15:49 IMPRESSION: NO RADIOGRAPHIC EVIDENCE FOR ACUTE ABDOMINAL DISEASE. Abdomen/Pelvis CT 01/11/19 15:49 IMPRESSION: 1. Findings consistent with a ruptured rectosigmoid colon at the level of a large fecalith within the rectosigmoid colon expanding the lumen. The possibility of mucosal abnormality distal to the ruptured colon not be excluded. Extensive retroperitoneal air and air within the mesentery. Marked constipation. Chest X-Ray 01/12/19 00:00 IMPRESSION: Support devices as above. Assessment & Plan - Diagnosis (2) Lupus (systemic lupus erythematosus) Qualifiers: Systemic lupus erythematosus type: unspecified Systemic lupus erythematosus organ involvement: other Qualified Code(s): M32.19 - Other organ or system involvement in systemic lupus erythematosus Is this a current diagnosis for this admission?: Yes (3) Immunosuppression due to drug therapy Is this a current diagnosis for this admission?: Yes (4) Chronic steroid use Is this a current diagnosis for this admission?: Yes (5) Morbid exogenous obesity Is this a current diagnosis for this admission?: Yes (6) Obstructive sleep apnea hypopnea, moderate Is this a current diagnosis for this admission?: Yes - Time Time Spent with patient: 35 or more minutes Total Critical Time (Minutes): 35 - [id number] Level of Care: ICU Medications reviewed and adjusted accordingly: Yes Anticipated discharge: Acute Rehab Within: within 48 hours Disposition: Can be downgraded from critical care standpoint - Plan Summary Plan Summary: 01.13.19: Patient has maintained a consistent and acceptable trajectory after a significant presentation with encephalopathy related to sepsis. We will start enteral feeds and follow her exam. Vascular physical therapy to evaluate the patient. She does use a walker at home and will ask them to assist in her rehabilitation process. Continue antibiotics for at least 5 to 7 days and follow her course. Given her immune suppression status would also continue Diflucan for the same time. We will also need BiPAP at night which she does use at home. At risk for atelectasis and significant rehab and mobilization will need to be done to assure safe transition. On a critical care standpoint she is suitable for transition to stepdown or surgical floor care. 01.12.2019: Patient seen and examined throughout the day on multiple occasions. She met suitability for weaning from the ventilator and was successfully extubated after morning rounds. The use of antifungals is warranted in few situations. Given her immunosuppressed state she would be a candidate for this. Given her non-shock state and antifungal like Diflucan would be indicated. Treatment for her peritonitis should be for 5 to 7 days. Patient also endorses that she is on BiPAP at night. She does not know the pressure settings. We will start her on this this evening to prevent atelectasis. We will start a aggressive rehab program including incentive spirometry as well. She is at high risk for postoperative respiratory failure given her morbid obesity and her history of sleep apnea. We will hold on her CellCept and Plaqeunil at this point and wean steroids. Patient has a diverting colostomy but has a primary anastomosis of the removed segments. Follow the mucosa which appears healthy today and watch for stool output. She has been on nortryptilline. Will need to follow for withdraw and start low dose to prevent withdraw related seizures. I have added Dilaudid for pain control. Her lupus flares appear to be more joint related. She denies any renal involvement or lung involvement. The care of the patient is a dynamic an ongoing process throughout the ICU. Events of the day are captured in a one-time note format in an attempt to describe the last 24 hours. Orders done or given are not always reflected by the timing of the placement in the chart. This patient requires critical care secondary to: Acute respiratory failure, and the weaning of mechanical ventilation. Medical power of estate planning attorney is her . He was updated at bedside
[2019-01-13] MEDS: FLUCONAZOLE 400 MG/NS RTU 400 MG/200 ML RTUPB IV SCH (21:50)
[2019-01-13] MEDS: NORTRIPTYLINE HCL 25 MG CAPSULE PO SCH (21:58)
[2019-01-14] MEDS: RINGERS SOLUTION,LACTATED 1,000 ML IV PRN ×2 (00:15→21:36)
[2019-01-14] MEDS: ACETAMINOPHEN 1,000 MG/100 ML RTUPB IV SCH ×3 (00:16→11:31)
[2019-01-14] MEDS: PIPERACILLIN SODIUM/TAZOBACTAM 4.5 GM in NORMAL SALINE 100 ML IV SCH ×4 (00:16→17:41)
[2019-01-14] MEDS: ONDANSETRON HCL INJ/PF 4 MG/2 ML SDV IV PRN ×3 (01:12→19:59)
[2019-01-14] MEDS ORDERED: KETOROLAC TROMETHAMINE INJ/PF 30 MG/1 ML SDV IV ONE (01:15)
[2019-01-14] MEDS: HYDROCORTISONE SOD SUCCINATE INJ/PF 100 MG/2 ML SDV IV SCH ×3 (06:05→21:34)
[2019-01-14] MEDS: HYDROMORPHONE HCL INJ/PF 2 MG/ML AMPULE IV PRN ×3 (06:23→19:47)
[2019-01-14 07:14] LABS: ALBUMIN 2.3 g/dL (3.5-5.0); ALKALINE PHOSPHATASE 71 U/L (38-126); ANION GAP 6 (5-19); ASPARTATE AMINO TRANSFERASE 15 U/L (14-36); BILIRUBIN,DIRECT 0.1 mg/dL (0.0-0.4); BILIRUBIN,TOTAL 0.2 mg/dL (0.2-1.3); BLOOD UREA NITROGEN 21 mg/dL (7-20); CALCIUM 8.3 mg/dL (8.4-10.2); CARBON DIOXIDE 31 mmol/L (22-30); CHLORIDE 104 mmol/L (98-107); GLUCOSE 105 mg/dL (75-110); PHOSPHORUS 3.9 mg/dL (2.5-4.5); POTASSIUM 3.7 mmol/L (3.6-5.0); TOTAL PROTEIN 4.7 g/dL (6.3-8.2)
[2019-01-14 07:18] LABS: ABSOLUTE MONOCYTES (AUTO) 0.7 10^3/uL (0.1-1.4); EOSINOPHILS % (AUTO) 0.2 % (0-6); HEMATOCRIT 23.6 % (36.0-47.0); LYMPHOCYTES % (AUTO) 7.4 % (13-45); MEAN CORPUSCULAR HEMOGLOBIN 28.4 pg (27.0-33.4); MEAN CORPUSCULAR HGB CONC 32.5 g/dL (32.0-36.0); MEAN CORPUSCULAR VOLUME 87 fl (80-97); MONOCYTES % (AUTO) 4.9 % (3-13); PLATELET COUNT 172 10^3/uL (150-450); RED CELL DISTRIBUTION WIDTH 16.9 % (11.5-14.0); SEGMENTED NEUTROPHILS % (AUTO) 87.5 % (42-78); TOTAL CELLS COUNTED % (AUTO) 100 %; WHITE BLOOD COUNT 13.7 10^3/uL (4.0-10.5)
--- NOTE | 2019-01-14 08:08 | RADIOLOGY REPORT (SQ) ---
EXAM DESCRIPTION: CHEST SINGLE VIEW COMPLETED DATE/TIME: 01/14/2019 7:37 am REASON FOR STUDY: ETT placement COMPARISON: 01/13/2019 NUMBER OF VIEWS: One view. TECHNIQUE: Single frontal radiographic view of the chest acquired. LIMITATIONS: None. FINDINGS: LUNGS AND PLEURA: There is improved aeration in the right base. Minimal bibasilar atelect asis remains. Central line is unchanged. No effusions or pneumothorax. MEDIASTINUM AND HILAR STRUCTURES: No masses. Contour normal. HEART AND VASCULAR STRUCTURES: Heart normal in size. Normal vasculature. BONES: No acute findings. HARDWARE: None in the chest. OTHER: No other significant finding. IMPRESSION: Minimal persistent bibasilar atelectasis although improved from prior study. TECHNICAL DOCUMENTATION: JOB ID: [id number] [employer]- All Rights Reserved Reading location - IP/workstation name: [email or web address]
[2019-01-14 08:24] LABS: HEMOGLOBIN 7.7 g/dL (12.0-15.5)
[2019-01-14] MEDS: ENOXAPARIN SODIUM INJ 40 MG/0.4 ML DISP.SYRIN SUBCUT SCH (09:25)
[2019-01-14] MEDS: KETOROLAC TROMETHAMINE INJ/PF 30 MG/1 ML SDV IV SCH ×2 (09:25→17:40)
--- NOTE | 2019-01-14 13:28 | PDOC PROGRESS REPORT ---
Subjective Progress Note for:: 01/14/19 Subjective:: Patient comfortable, stools and gas in the ileostomy bag, mild nausea Reason For Visit: PERFORATED COLON Physical Exam Vital Signs: Temp Pulse Resp BP Pulse Ox 99.0 F 84 19 119/86 H 96 01/14/19 10:16 01/14/19 07:18 01/14/19 10:16 01/14/19 10:16 01/14/19 10:16 Intake & Output 01/13/19 01/14/19 01/15/19 06:59 06:59 06:59 Intake Total 3613 2750 200 Output Total 2135 1380 Balance 1478 1370 200 Weight 120.2 kg 121.3 kg General appearance: PRESENT: no acute distress, obese Respiratory exam: PRESENT: clear to auscultation tricia Cardiovascular exam: PRESENT: RRR GI/Abdominal exam: PRESENT: hypoactive bowel sounds, soft, other - Midline incision = retention sutures in place, wound edges granulating, without erythema, drainage, or odor; lower abdominal drains x2 = filled with serous fluid Results Laboratory Results: 01/14/19 04:28 01/14/19 04:28 01/14/19 01/14/19 04:28 04:28 WBC 13.7 H RBC 2.70 L Hgb 7.7 L Hct 23.6 L MCV 87 MCH 28.4 MCHC 32.5 RDW 16.9 H Plt Count 172 Seg Neutrophils % 87.5 H Sodium 140.9 Potassium 3.7 Chloride 104 Carbon Dioxide 31 H Anion Gap 6 BUN 21 H Creatinine 1.23 Est GFR ( Amer) 53 L Glucose 105 Calcium 8.3 L Phosphorus 3.9 Magnesium 1.9 Total Bilirubin 0.2 AST 15 Alkaline Phosphatase 71 Total Protein 4.7 L Albumin 2.3 L 01/11/19 21:10 Pelvic Fluid Gram Stain - Final 01/11/19 14:16 Blood Blood Culture - Final Staphylococcus Haemolyticus 01/11/19 16:47 Catheterized Urine Urine Culture - Final NO GROWTH 2 DAYS 01/11/19 15:18 Troponin I < 0.012 Impressions: Abdomen X-Ray 01/11/19 15:49 IMPRESSION: NO RADIOGRAPHIC EVIDENCE FOR ACUTE ABDOMINAL DISEASE. Abdomen/Pelvis CT 01/11/19 15:49 IMPRESSION: 1. Findings consistent with a ruptured rectosigmoid colon at the level of a large fecalith within the rectosigmoid colon expanding the lumen. The possibility of mucosal abnormality distal to the ruptured colon not be excluded. Extensive retroperitoneal air and air within the mesentery. Marked constipation. Chest X-Ray 01/14/19 06:00 IMPRESSION: Minimal persistent bibasilar atelectasis although improved from prior study. Assessment & Plan - Diagnosis (1) Perforated sigmoid colon Is this a current diagnosis for this admission?: Yes (2) Free intraperitoneal air Is this a current diagnosis for this admission?: Yes (3) Constipation with fecalytes Is this a current diagnosis for this admission?: Yes (4) Lupus Is this a current diagnosis for this admission?: Yes (5) Steroid dependent Is this a current diagnosis for this admission?: Yes (6) Hypothyroidism (acquired) Is this a current diagnosis for this admission?: Yes - Time Time Spent with patient: 25-34 minutes - Plan Summary Plan Summary: Assessment: Postoperative day #2 following laparotomy, low anterior resection with primary anastomosis, and diverting loop ileostomy for perforated sigmoid stercoral ulcer Patient comfortable with good mentation Vital signs stable patient afebrile Urine output good Carroll catheter had to be reinserted due to urinary retention Still moderately elevated Edgar-Almonte drain output; however, it is serosanguineous White blood cell count is still mildly elevated 13,000 Stable H&H 7.7 and 23.6, respectively Plan: Continue clear liquids Continue IV fluids and IV antibiotics Physical therapy for daily ambulation Up in chair twice daily Dressing changes 3 times a day with normal saline wet-to-dry technique
[2019-01-14] MEDS ORDERED: ACETAMINOPHEN 1,000 MG/100 ML RTUPB IV PRN (13:34)
[2019-01-14] MEDS: PANTOPRAZOLE SODIUM 40 MG VIAL IV SCH ×2 (14:12→21:36)
--- NOTE | 2019-01-14 19:25 | PDOC PROGRESS REPORT ---
Subjective Progress Note for:: 01/14/19 Subjective:: 01.14.19: Patient continues to improve. She did have urinary retention with pain on attempt to urinate and a Carroll catheter had to be replaced. Now has air and liquid in her ostomy but no significant stool elements. No flatus from rectum. 1 blood culture grew a gram-positive organism. I was notified by [employer] today that this appears to be a contaminant of coag negative group on only one culture. Tubal organisms have been identified from the peritoneal swab. All appear to be sensitive to the antibiotics. No significant complaints other than the urinary retention and pain from that last night. She currently is pain-free. She has been hemodynamically stable and afebrile. 01.13.19: Patient was successfully weaned and liberated from mechanical ventilation. She is remained hemodynamically stable. Diverting ostomy has clear liquid. Mucosal pink and healty NGT output has been minimal. Removed earlier today. Tolerated BiPap. No significant pain. Started on Diflucan secondary to immunesuppression regime with bowel pe rforation. 01.12.19:Patient admitted to the ICU after surgery for perforated colon. Appears to be a perforation related to a stercolic ulcer. She was suitable for an and SBT this morning and was placed on a weaning profile. She was able to lift her head and follow commands after the Versed was discontinued. Reason For Visit: PERFORATED COLON Physical Exam Vital Signs: Temp Pulse Resp BP Pulse Ox 98.4 F 84 14 144/89 H 97 01/14/19 07:18 01/14/19 07:18 01/14/19 07:18 01/14/19 07:18 01/14/19 07:18 Intake & Output 01/13/19 01/14/19 01/15/19 06:59 06:59 06:59 Intake Total 3613 2750 200 Output Total 2135 1380 Balance 1478 1370 200 Weight 120.2 kg 121.3 kg Physical Exam: Morbidly obese nontoxic pleasant 63-year-old female no active distress General appearance: PRESENT: no acute distress, cooperative, morbidly obese Eye exam: PRESENT: conjunctiva pink, EOMI, PERRLA. ABSENT: conjunctival injection, nystagmus, scleral icterus Mouth exam: PRESENT: moist, neck supple Neck exam: ABSENT: carotid bruit, JVD, lymphadenopathy, tenderness, thyromegaly, tracheal deviation Additional comments: Left subclavian central venous catheter site is clean dry intact no erythema no discharge no hematoma Respiratory exam: PRESENT: clear to auscultation tricia, unlabored. ABSENT: accessory muscle use, tachypnea, wheezes Cardiovascular exam: PRESENT: RRR, +S1, +S2 Pulses: PRESENT: +1 pedal pulses bilateral Vascular exam: PRESENT: normal capillary refill GI/Abdominal exam: PRESENT: diminished bowel sounds, soft. ABSENT: ascites, distended, guarding, mass, rebound, rigid, tenderness Additonal comments: Skin is open fascia is closed. No erythema no exudative discharge Rectal exam: PRESENT: deferred Gentrourinary exam: PRESENT: indwelling catheter Extremities exam: PRESENT: joint swelling, pedal edema Musculoskeletal exam: PRESENT: deformity - Swelling unchanged in fingers and wrist. ABSENT: tenderness Neurological exam: PRESENT: alert, awake, oriented to person, oriented to place, oriented to time, oriented to situation, CN II-XII grossly intact. ABSENT: motor sensory deficit Psychiatric exam: PRESENT: appropriate affect, normal mood. ABSENT: agitated, anxious Focused psych exam: ABSENT: pressured speech, psychomotor agitation, restlessness Skin exam: PRESENT: normal color. ABSENT: abrasion, cyanosis, erythema, jaund ice, mottled, pallor, urticaria, vesicles Results Laboratory Results: 01/14/19 04:28 01/14/19 04:28 Sodium 140.9 Potassium 3.7 Chloride 104 Carbon Dioxide 31 H Anion Gap 6 BUN 21 H Creatinine 1.23 Est GFR ( Amer) 53 L Glucose 105 Calcium 8.3 L Phosphorus 3.9 Magnesium 1.9 Total Bilirubin 0.2 AST 15 Alkaline Phosphatase 71 Total Protein 4.7 L Albumin 2.3 L 01/11/19 16:47 Catheterized Urine Urine Culture - Final NO GROWTH 2 DAYS 01/11/19 15:18 Troponin I < 0.012 Impressions: Abdomen X-Ray 01/11/19 15:49 IMPRESSION: NO RADIOGRAPHIC EVIDENCE FOR ACUTE ABDOMINAL DISEASE. Abdomen/Pelvis CT 01/11/19 15:49 IMPRESSION: 1. Findings consistent with a ruptured rectosigmoid colon at the level of a large fecalith within the rectosigmoid colon expanding the lumen. The possibility of mucosal abnormality distal to the ruptured colon not be excluded. Extensive retroperitoneal air and air within the mesentery. Marked constipation. Assessment & Plan - Diagnosis (1) Perforated sigmoid colon Is this a current diagnosis for this admission?: Yes (2) Lupus (systemic lupus erythematosus) Qualifiers: Systemic lupus erythematosus type: unspecified Systemic lupus erythematosus organ involvement: other Qualified Code(s): M32.19 - Other organ or system involvement in systemic lupus erythematosus Is this a current diagnosis for this admission?: Yes (3) Immunosuppression due to drug therapy Is this a current diagnosis for this admission?: Yes (4) Chronic steroid use Is this a current diagnosis for this admission?: Yes (5) Morbid exogenous obesity Is this a current diagnosis for this admission?: Yes (6) Obstructive sleep apnea hypopnea, moderate Is this a current diagnosis for this admission?: Yes (7) Peritonitis, acute generalized Is this a current diagnosis for this admission?: Yes (8) Bacterial peritonitis Is this a current diagnosis for this admission?: Yes - Time Time Spent with patient: 35 or more minutes Total Critical Time (Minutes): 99,233 Level of Care: ICU Medications reviewed and adjusted accordingly: Yes Anticipated discharge: Home with Homehealth Within: within 48 hours - Inpatient Certification Based on my medical assessment, after consideration of the patient's comorbidities, presenting symptoms, or acuity I expect that the services needed warrant INPATIENT care.: Yes I certify that my determination is in accordance with my understanding of Medicare's requirements for reasonable and necessary INPATIENT services [42 CFR 412.3e].: Yes Medical Necessity: Significant Comorbidiites Make Outpatient Treatment Too Risky, Need Close Monitoring Due to Risk of Patient Decompensation, Need for Neurological Checks, Need for Pain Control, Need for IV Antibiotics, Risk of Complication if Not Cared For in Hospital Post Hospital Care: D/C Warehouse Operator Documentation - Plan Summary Plan Summary: 01.14.19: Patient continues on an expected trajectory and is postop day 2.5. Have urinary retention and would encourage physical therapy and mobility to help improve this. She has aerobic and anaerobic organisms on peritoneal swab. All appear to be sensitive to the antibiotics. She is also on antifungal therapy. No fungal elements have been noted however these may take some time to process. Commend a course of therapy is 5 to 7 days. She has been downgraded from critical care by the surgical service. From a critical care standpoint we will sign off however if we can be of further service please contact us. Follow-up items include reinstitution of immune therapy for lupus. If this is not acceptable she may need higher steroid dose especially if she has a flare of her lupus. Careful attention to anticoagulation is of paramount importance in her weight and her lupus. Continue BiPAP therapy and patient may use her own. The care of the patient is a dynamic an ongoing process throughout the ICU. Events of the day are captured in a one-time note format in an attempt to describe the last 24 hours. Orders done or given are not always reflected by the timing of the placement in the chart. Multidisciplinary rounds were carried out at bedside. ABCDEF standard patient care bundle was discussed and fulfilled. This patient does not require critical care and can be transitioned to surgical floor 01.13.19: Patient has maintained a consistent and acceptable trajectory after a significant presentation with encephalopathy related to sepsis. We will start enteral feeds and follow her exam. Vascular physical therapy to evaluate the patient. She does use a walker at home and will ask them to assist in her rehabilitation process. Continue antibiotics for at least 5 to 7 days and follow her course. Given her immune suppression status would also continue Diflucan for the same time. We will also need BiPAP at night which she does use at home. At risk for atelectasis and significant rehab and mobilization will need to be done to assure safe transition. On a critical care standpoint she is suitable for transition to stepdown or surgical floor care. 01.12.2019: Patient seen and examined throughout the day on multiple occasions. She met suitability for weaning from the ventilator and was successfully extubated after morning rounds. The use of antifungals is warranted in few situations. Given her immunosuppressed state she would be a candidate for this. Given her non-shock state and antifungal like Diflucan would be indicated. Treatment for her peritonitis should be for 5 to 7 days. Patient also endorses that she is on BiPAP at night. She does not know the pressure settings. We will start her on this this evening to prevent atelecta sis. We will start a aggressive rehab program including incentive spirometry as well. She is at high risk for postoperative respiratory failure given her morbid obesity and her history of sleep apnea. We will hold on her CellCept and Plaqeunil at this point and wean steroids. Patient has a diverting colostomy but has a primary anastomosis of the removed segments. Follow the mucosa which appears healthy today and watch for stool output. She has been on nortryptilline. Will need to follow for withdraw and start low dose to prevent withdraw related seizures. I have added Dilaudid for pain control. Her lupus flares appear to be more joint related. She denies any renal involvement or lung involvement.
[2019-01-14] MEDS: ACETAMINOPHEN 1,000 MG/100 ML RTUPB IV PRN (20:00)
[2019-01-14] MEDS: FLUCONAZOLE 400 MG/NS RTU 400 MG/200 ML RTUPB IV SCH (21:34)
[2019-01-14] MEDS: NORTRIPTYLINE HCL 25 MG CAPSULE PO SCH (21:35)
[2019-01-14] MEDS: METOCLOPRAMIDE HCL INJ/PF 10 MG/2 ML SDV IV PRN (21:40)
[2019-01-15] MEDS: PIPERACILLIN SODIUM/TAZOBACTAM 4.5 GM in NORMAL SALINE 100 ML IV SCH ×5 (00:08→23:34)
[2019-01-15] MEDS: ONDANSETRON HCL INJ/PF 4 MG/2 ML SDV IV PRN ×4 (00:15→12:58)
[2019-01-15] MEDS: NORMAL SALINE 1000 ML 1,000 ML IV PRN ×2 (01:58→10:59)
[2019-01-15] MEDS: KETOROLAC TROMETHAMINE INJ/PF 30 MG/1 ML SDV IV SCH ×3 (03:18→18:30)
[2019-01-15] MEDS: METOCLOPRAMIDE HCL INJ/PF 10 MG/2 ML SDV IV PRN ×2 (03:18→10:59)
[2019-01-15] MEDS: HYDROMORPHONE HCL INJ/PF 2 MG/ML AMPULE IV PRN ×2 (04:15→21:11)
[2019-01-15] MEDS: ACETAMINOPHEN 1,000 MG/100 ML RTUPB IV PRN ×2 (04:15→18:31)
--- NOTE | 2019-01-15 07:48 | PDOC PROGRESS REPORT ---
Subjective Progress Note for:: 01/15/19 Subjective:: The patient is comfortable but nauseated, she had emesis 3 times overnight; she refused the placement of a nasogastric tube Reason For Visit: PERFORATED COLON Physical Exam Vital Signs: Temp Pulse Resp BP Pulse Ox 99.3 F 96 16 149/98 H 97 01/15/19 07:19 01/14/19 20:21 01/15/19 07:19 01/15/19 07:19 01/15/19 07:19 Intake & Output 01/14/19 01/15/19 01/16/19 06:59 06:59 06:59 Intake Total 2750 2426 Output Total 1380 2420 Balance 1370 6 Weight 121.3 kg 121.1 kg General appearance: PRESENT: no acute distress, obese Respiratory exam: PRESENT: clear to auscultation tricia Cardiovascular exam: PRESENT: RRR GI/Abdominal exam: PRESENT: distended - Slight upper abdomen distention, hypoactive bowel sounds, soft, other - Midline wound with retention sutures in place, granulating, no drainage, odor, or erythema; 2 right and left lower abdomen drains with serosanguineous fluid Extremities exam: PRESENT: full ROM Musculoskeletal exam: PRESENT: full ROM Skin exam: PRESENT: warm Results Laboratory Results: 01/14/19 04:28 01/14/19 04:28 01/14/19 04:28 WBC 13.7 H RBC 2.70 L Hgb 7.7 L Hct 23.6 L MCV 87 MCH 28.4 MCHC 32.5 RDW 16.9 H Plt Count 172 Seg Neutrophils % 87.5 H 01/11/19 21:10 Pelvic Fluid Gram Stain - Final 01/11/19 21:10 Pelvic Fluid Body Fluid Culture - Final Escherichia Coli Streptococcus Bovis Grp Enterococcus Faecium (Group D) Prevotella Species Tissierella Praeacuta Prevotella Species#2 01/11/19 14:16 Blood Blood Culture - Final Staphylococcus Haemolyticus 01/11/19 15:18 Troponin I < 0.012 Impressions: Abdomen X-Ray 01/11/19 15:49 IMPRESSION: NO RADIOGRAPHIC EVIDENCE FOR ACUTE ABDOMINAL DISEASE. Abdomen/Pelvis CT 01/11/19 15:49 IMPRESSION: 1. Findings consistent with a ruptured rectosigmoid colon at the level of a large fecalith within the rectosigmoid colon expanding the lumen. The possibility of mucosal abnormality distal to the ruptured colon not be excluded. Extensive retroperitoneal air and air within the mesentery. Marked constipation. Chest X-Ray 01/14/19 06:00 IMPRESSION: Minimal persistent bibasilar atelectasis although improved from prior study. Assessment & Plan - Diagnosis (1) Perforated sigmoid colon Is this a current diagnosis for this admission?: Yes (2) Free intraperitoneal air Is this a current diagnosis for this admission?: Yes (3) Constipation with fecalytes Is this a current diagnosis for this admission?: Yes (4) Lupus Is this a current diagnosis for this admission?: Yes (5) Steroid dependent Is this a current diagnosis for this admission?: Yes (6) Hypothyroidism (acquired) Is this a current diagnosis for this admission?: Yes - Time Time Spent with patient: 15-24 minutes - Plan Summary Plan Summary: Assessment: Postoperative day #3 following laparotomy, anterior resection with primary anastomosis, diverting loop ileostomy for perforated sigmoid stercoral ulcer Vital signs stable, patient afebrile Good urine output Lower abdominal drains output decreasing (100/180 mL, respectively), seros anguineous Emesis overnight x3 now resolved Blood work unchanged since yesterday with slight leukocytosis Blood culture x1+ for Staphylococcus; however interpretation of this result is uncertain Intra-abdominal cultures significant for multiple organisms sensitive to penicillin Plan: Keep patient n.p.o. at this time until nausea resolves Continue IV fluids Continue IV antibiotics Out of bed up in chair as much as tolerated Ambulation Plan to remove the drains once the output is less than 30 mL/day Remove Carroll catheter today
[2019-01-15] MEDS: HYDROCORTISONE SOD SUCCINATE INJ/PF 100 MG/2 ML SDV IV SCH ×2 (09:30→21:01)
[2019-01-15] MEDS: PANTOPRAZOLE SODIUM 40 MG VIAL IV SCH ×2 (09:30→21:01)
[2019-01-15] MEDS: ENOXAPARIN SODIUM INJ 40 MG/0.4 ML DISP.SYRIN SUBCUT SCH (09:31)
[2019-01-15 11:49] LABS: HEMATOCRIT 27.6 % (36.0-47.0); HEMOGLOBIN 9.1 g/dL (12.0-15.5); MEAN CORPUSCULAR HEMOGLOBIN 28.8 pg (27.0-33.4); MEAN CORPUSCULAR HGB CONC 33.1 g/dL (32.0-36.0); MEAN CORPUSCULAR VOLUME 87 fl (80-97); PLATELET COUNT 225 10^3/uL (150-450); RED BLOOD COUNT 3.17 10^6/uL (3.72-5.28); RED CELL DISTRIBUTION WIDTH 16.5 % (11.5-14.0); WHITE BLOOD COUNT 15.3 10^3/uL (4.0-10.5)
[2019-01-15 12:14] LABS: ALBUMIN 2.6 g/dL (3.5-5.0); ALKALINE PHOSPHATASE 74 U/L (38-126); ANION GAP 5 (5-19); ASPARTATE AMINO TRANSFERASE 19 U/L (14-36); BILIRUBIN,DIRECT 0.1 mg/dL (0.0-0.4); BILIRUBIN,TOTAL 0.4 mg/dL (0.2-1.3); BLOOD UREA NITROGEN 17 mg/dL (7-20); CALCIUM 8.6 mg/dL (8.4-10.2); CARBON DIOXIDE 34 mmol/L (22-30); CHLORIDE 102 mmol/L (98-107); GLUCOSE 70 mg/dL (75-110); PHOSPHORUS 3.6 mg/dL (2.5-4.5); POTASSIUM 3.4 mmol/L (3.6-5.0); TOTAL PROTEIN 5.1 g/dL (6.3-8.2)
[2019-01-15 12:25] LABS: ABSOLUTE MONOCYTES # (MANUAL) 0.9 10^3/uL (0.1-1.4); BAND NEUTROPHILS % (MANUAL) 4 % (3-5); BASOPHILS % (MANUAL) 0 % (0-2); EOSINOPHILS % (MANUAL) 0 % (0-6); LYMPHOCYTES % (MANUAL) 12 % (13-45); MONOCYTES % (MANUAL) 6 % (3-13); SEGMENTED NEUTROPHILS % (MAN) 77 % (42-78); TOTAL CELLS COUNTED 100
[2019-01-15 12:26] LABS: ANISOCYTOSIS 1+; PLATELET COMMENT ADEQUATE; POIKILOCYTOSIS 1+; POLYCHROMASIA SLIGHT; STOMATOCYTES 1+; TOXIC GRANULATION 1+
--- NOTE | 2019-01-15 12:32 | RADIOLOGY REPORT (SQ) ---
EXAM DESCRIPTION: KUB/ABDOMEN (SINGLE VIEW) COMPLETED DATE/TIME: 01/15/2019 12:23 pm REASON FOR STUDY: abdominal distension COMPARISON: 01/11/2019 NUMBER OF VIEWS: One view. TECHNIQUE: Supine radiographic image of the abdomen acquired. LIMITATIONS: None. FINDINGS: BOWEL GAS PATTERN: Normal bowel gas pattern. No dilated loops. CALCIFICATIONS: No suspicious calcifications. SOFT TISSUES: No gross mass or suggestion of organomegaly. HARDWARE: None in the abdomen. BONES: No acute fracture. No worrisome bone lesions. OTHER: No other significant finding. IMPRESSION: NO RADIOGRAPHIC EVIDENCE FOR ACUTE ABDOMINAL DISEASE. TECHNICAL DOCUMENTATION: JOB ID: [id number] [email or web address]- All Rights Reserved Reading location - IP/workstation name: [email or web address]
[2019-01-15] MEDS ORDERED: LORAZEPAM INJ 2 MG/1 ML VIAL ONE (13:55)
[2019-01-15] MEDS ORDERED: LIDOCAINE 2% JELLY 5 ML TUBE MM PRN (13:56)
[2019-01-15] MEDS ORDERED: LORAZEPAM INJ 2 MG/1 ML VIAL IV ONE (14:45)
--- NOTE | 2019-01-15 15:15 | RADIOLOGY REPORT (SQ) ---
EXAM DESCRIPTION: KUB/ABDOMEN (SINGLE VIEW) COMPLETED DATE/TIME: 01/15/2019 3:04 pm REASON FOR STUDY: Check Placement of NG Tube COMPARISON: Earlier the same day. NUMBER OF VIEWS: One view. TECHNIQUE: Supine radiographic image of the abdomen acquired. LIMITATIONS: None. FINDINGS: Limited view the abdomen is obtained for NG tube placement. NG tube tip lies in the left mid abdomen most likely within stomach. IMPRESSION: NG tube appears to be in satisfactory position. TECHNICAL DOCUMENTATION: JOB ID: [id number] [email or web address]- All Rights Reserved Reading location - IP/workstation name: [email or web address]
--- NOTE | 2019-01-15 18:59 | PDOC PROGRESS REPORT ---
Subjective Progress Note for:: 01/15/19 Subjective:: 01.15.19: Evaluate the patient because of nausea and vomiting today. She endors es that she often has this however it became refractory today and required placement of NG tube. Notably 800 cc of gastric fluid was removed and patient felt significantly improved. She has no pain at this time. She has been able to urinate without the Carroll catheter. Has output from her ostomy she is essentially liquid. 01.14.19: Patient continues to improve. She did have urinary retention with pain on attempt to urinate and a Carroll catheter had to be replaced. Now has air and liquid in her ostomy but no significant stool elements. No flatus from rectum. 1 blood culture grew a gram-positive organism. I was notified by [email or web address] today that this appears to be a contaminant of coag negative group on only one culture. Tubal organisms have been identified from the peritoneal swab. All appear to be sensitive to the antibiotics. No significant complaints other than the urinary retention and pain from that last night. She currently is pain-free. She has been hemodynamically stable and afebrile. 01.13.19: Patient was successfully weaned and liberated from mechanical ventilation. She is remained hemodynamically stable. Diverting ostomy has clear liquid. Mucosal pink and healty NGT output has been minimal. Removed earlier today. Tolerated BiPap. No significant pain. Started on Diflucan secondary to immunesuppression regime with bowel perforation. 01.12.19:Patient admitted to the ICU after surgery for perforated colon. Appea rs to be a perforation related to a stercolic ulcer. She was suitable for an and SBT this morning and was placed on a weaning profile. She was able to lift her head and follow commands after the Versed was discontinued. Reason For Visit: PERFORATED COLON Physical Exam Vital Signs: Temp Pulse Resp BP Pulse Ox 99.2 F 94 17 169/98 H 100 01/15/19 12:00 01/15/19 12:00 01/15/19 14:00 01/15/19 12:42 01/15/19 14:00 Intake & Output 01/14/19 01/15/19 01/16/19 06:59 06:59 06:59 Intake Total 2750 2526 1115 Output Total 1380 2350 1270 Balance 1370 176 -155 Weight 121.3 kg 121.1 kg Physical Exam: Morbidly obese nontoxic but ill 63-year-old female no acute distress awake alert oriented x3 General appearance: PRESENT: no acute distress, cooperative, morbidly obese Eye exam: PRESENT: conjunctiva pink, EOMI, PERRLA. ABSENT: conjunctival injection, nystagmus, scleral icterus Mouth exam: PRESENT: moist, neck supple Neck exam: ABSENT: carotid bruit, JVD, lymphadenopathy, tenderness, thyromegaly, tracheal deviation Additional comments: Right subclavian central venous catheter is still intact, no erythema no dis charge Respiratory exam: PRESENT: clear to auscultation tricia, unlabored. ABSENT: accessory muscle use, retraction, tachypnea, wheezes Cardiovascular exam: PRESENT: RRR, +S1, +S2. ABSENT: bradycardia Pulses: PRESENT: +1 pedal pulses bilateral GI/Abdominal exam: PRESENT: diminished bowel sounds, distended, hypoactive bowel sounds, tenderness - slight at incision site. More epigastric distension com pared to yesterday.. ABSENT: ascites, firm, guarding, Rainey's sign, normal bowel sounds, organolmegaly, rebound, rigid Rectal exam: PRESENT: deferred Extremities exam: PRESENT: joint swelling, pedal edema Musculoskeletal exam: PRESENT: deformity - chronic swelling of digits of hands. ABSENT: dislocation Additional comments: Patient has significant anasarca especially of the lower extremities. Neurological exam: PRESENT: alert, awake, oriented to person, oriented to place, oriented to time, oriented to situation, CN II-XII grossly intact. ABSENT: motor sensory deficit, aphasic Psychiatric exam: PRESENT: appropriate affect. ABSENT: agitated, anxious Focused psych exam: ABSENT: psychomotor agitation, restlessness Skin exam: PRESENT: intact, normal color. ABSENT: abrasion, cyanosis, erythema, jaundice, mottled, pallor, petechiae Results Laboratory Results: 01/15/19 11:23 01/15/19 11:23 01/15/19 01/15/19 11:23 11:23 WBC 15.3 H RBC 3.17 L Hgb 9.1 L Hct 27.6 L MCV 87 MCH 28.8 MCHC 33.1 RDW 16.5 H Plt Count 225 Seg Neutrophils % Not Reportable Sodium 140.7 Potassium 3.4 L Chloride 102 Carbon Dioxide 34 H Anion Gap 5 BUN 17 Creatinine 1.00 Est GFR ( Amer) > 60 Glucose 70 L Calcium 8.6 Phosphorus 3.6 Magnesium 1.7 Total Bilirubin 0.4 AST 19 Alkaline Phosphatase 74 Total Protein 5.1 L Albumin 2.6 L 01/11/19 20:45 Abdominal Fluid Gram Stain - Final 01/11/19 20:45 Abdominal Fluid Body Fluid Culture - Final NO AEROBIC OR ANAEROBIC ORGANISMS RECOVERED 01/11/19 21:10 Pelvic Fluid Gram Stain - Final 01/11/19 21:10 Pelvic Fluid Body Fluid Culture - Final Escherichia Coli Streptococcus Bovis Grp Enterococcus Faecium (Group D) Prevotella Species Tissierella Praeacuta Prevotella Species#2 01/11/19 15:18 Troponin I < 0.012 Impressions: Abdomen X-Ray 01/11/19 15:49 IMPRESSION: NO RADIOGRAPHIC EVIDENCE FOR ACUTE ABDOMINAL DISEASE. Abdomen/Pelvis CT 01/11/19 15:49 IMPRESSION: 1. Findings consistent with a ruptured rectosigmoid colon at the level of a large fecalith within the rectosigmoid colon expanding the lumen. The possibility of mucosal abnormality distal to the ruptured colon not be excluded. Extensive retroperitoneal air and air within the mesentery. Marked constipation. Chest X-Ray 01/14/19 06:00 IMPRESSION: Minimal persistent bibasilar atelectasis although improved from prior study. KUB X-Ray 01/15/19 13:53 IMPRESSION: NG tube appears to be in satisfactory position. Assessment & Plan - Diagnosis (1) Perforated sigmoid colon Is this a current diagnosis for this admission?: Yes (2) Lupus (systemic lupus erythematosus) Qualifiers: Systemic lupus erythematosus type: unspecified Systemic lupus erythematosus organ involvement: other Qualified Code(s): M32.19 - Other organ or system involvement in systemic lupus erythematosus Is this a current diagnosis for this admission?: Yes (3) Immunosuppression due to drug therapy Is this a current diagnosis for this admission?: Yes (4) Chronic steroid use Is this a current diagnosis for this admission?: Yes (5) Morbid exogenous obesity Is this a current diagnosis for this admission?: Yes (6) Obstructive sleep apnea hypopnea, moderate Is this a current diagnosis for this admission?: Yes (7) Peritonitis, acute generalized Is this a current diagnosis for this admission?: Yes (8) Bacterial peritonitis Is this a current diagnosis for this admission?: Yes (9) Gastric distention Is this a current diagnosis for this admission?: Yes (10) Nausea & vomiting Qualifiers: Vomiting type: bilious vomiting Qualified Code(s): R11.14 - Bilious vomiting Is this a current diagnosis for this admission?: Yes (11) Post-operative state Is this a current diagnosis for this admission?: Yes (12) Encounter for weaning from ventilator Is this a current diagnosis for this admission?: Yes - Time Time Spent with patient: 35 or more minutes Total Critical Time (Minutes): 40 Level of Care: ICU Medications reviewed and adjusted accordingly: Yes - Inpatient Certification Based on my medical assessment, after consideration of the patient's comorbidities, presenting symptoms, or acuity I expect that the services needed warrant INPATIENT care.: Yes I certify that my determination is in accordance with my understanding of Medicare's requirements for reasonable and necessary INPATIENT services [42 CFR 412.3e].: Yes Medical Necessity: Significant Comorbidiites Make Outpatient Treatment Too Risky, Need Close Monitoring Due to Risk of Patient Decompensation, Need For Continuous Telemetry Monitoring, Need for IV Antibiotics, Risk of Complication if Not Cared For in Hospital, Risk of Diagnosis Which Will Require Inpatient Eval/Care/Monitoring - Plan Summary Plan Summary: 01.15.19: Patient situation has changed and critical care was reinstituted for evaluation of this patient. She does not appear toxic but given the gastric distention she is at risk for complications. She is on BiPAP at night and now has an NG tube and so this does not preclude its use. She does have a history of this type of gastric dysfunction however the distention is worse than she has had in the past. She has now improved with intervention and we have replaced her potassium. On x-ray there is edema of the bowel wall and she has anasarca. I have discontinued her IV fluids. She may be a candidate for diuresis however will need to replace her potassium before doing so. Would continue to maintain her in the ICU until we can be assured of stability. Her white count is slightly higher today and will need to follow this. Also organisms were found on the peritoneal swab all are sensitive to the current antibiotics. The care of the patient is a dynamic an ongoing process throughout the ICU. Events of the day are captured in a one-time note format in an attempt to desc ribe the last 24 hours. Orders done or given are not always reflected by the timing of the placement in the chart. Multidisciplinary rounds were carried out at bedside. ABCDEF standard patient care bundle was discussed and fulfilled. 01.14.19: Patient continues on an expected trajectory and is postop day 2.5. Have urinary retention and would encourage physical therapy and mobility to help improve this. She has aerobic and anaerobic organisms on peritoneal swab. All appear to be sensitive to the antibiotics. She is also on antifungal therapy. No fungal elements have been noted however these may take some time to process. Commend a course of therapy is 5 to 7 days. She has been downgraded from critical care by the surgical service. From a critical care standpoint we will sign off however if we can be of further service please contact us. Follow-up items include reinstitution of immune therapy for lupus. If this is not acceptable she may need higher steroid dose especially if she has a flare of her lupus. Careful attention to anticoagulation is of paramount importance in her weight and her lupus. Continue BiPAP therapy and patient may use her own. This patient does not require critical care and can be transitioned to surgical floor 01.13.19: Patient has maintained a consistent and acceptable trajectory after a significant presentation with encephalopathy related to sepsis. We will start enteral feeds and follow her exam. Vascular physical therapy to evaluate the patient. She does use a walker at home and will ask them to assist in her rehabilitation process. Continue antibiotics for at least 5 to 7 days and follow her course. Given her immune suppression status would also continue Diflucan for the same time. We will also need BiPAP at night which she does use at home. At risk for atelectasis and significant rehab and mobilization will need to be done to assure safe transition. On a critical care standpoint she is suitable for transition to stepdown or surgical floor care. 01.12.2019: Patient seen and examined throughout the day on multiple occasions. She met suitability for weaning from the ventilator and was successfully extubated after morning rounds. The use of antifungals is warranted in few situations. Given her immunosuppressed state she would be a candidate for this. Given her non-shock state and antifungal like Diflucan would be indicated. Treatment for her peritonitis should be for 5 to 7 days. Patient also endorses that she is on BiPAP at night. She does not know the pressure settings. We will start her on this this evening to prevent atelectasis. We will start a aggressive rehab program including incentive spirometry as well. She is at high risk for postoperative respiratory failure given her morbid obesity and her history of sleep apnea. We will hold on her CellCept and Plaqeunil at this point and wean steroids. Patient has a diverting colostomy but has a primary anastomosis of the removed segments. Follow the mucosa which appears healthy today and watch for stool output. She has been on nortryptilline. Will need to follow for withdraw and start low dose to prevent withdraw related seizures. I have added Dilaudid for pain control. Her lupus flares appear to be more joint related. She denies any renal involvement or lung involvement.
[2019-01-15] MEDS: POTASSI CL 20 MEQ/50 ML RIDER 20 MEQ/50 ML RTUPB IV SCH ×2 (19:39→21:01)
[2019-01-15] MEDS: FLUCONAZOLE 400 MG/NS RTU 400 MG/200 ML RTUPB IV SCH (21:01)
[2019-01-15] MEDS: NORTRIPTYLINE HCL 25 MG CAPSULE PO SCH (21:11)
[2019-01-16] MEDS: DEXTROSE 50%-WATER 25 GM/50 ML DISP.SYRIN IV PRN ×2 (00:42→06:23)
[2019-01-16] MEDS: KETOROLAC TROMETHAMINE INJ/PF 30 MG/1 ML SDV IV SCH ×3 (01:03→18:29)
[2019-01-16] MEDS: HYDROMORPHONE HCL INJ/PF 2 MG/ML AMPULE IV PRN ×2 (03:58→21:02)
[2019-01-16] MEDS ORDERED: SUCCINYLCHOLINE CHLORIDE INJ 200 MG/10 ML VIAL ONE (05:00)
[2019-01-16] MEDS ORDERED: ROCURONIUM BROMIDE INJ 50 MG/5 ML VIAL IV ONE (05:00)
[2019-01-16 05:16] LABS: HEMATOCRIT 26.1 % (36.0-47.0); HEMOGLOBIN 8.6 g/dL (12.0-15.5); MEAN CORPUSCULAR HEMOGLOBIN 28.5 pg (27.0-33.4); MEAN CORPUSCULAR HGB CONC 32.8 g/dL (32.0-36.0); MEAN CORPUSCULAR VOLUME 87 fl (80-97); PLATELET COUNT 204 10^3/uL (150-450); RED BLOOD COUNT 3.01 10^6/uL (3.72-5.28); RED CELL DISTRIBUTION WIDTH 16.4 % (11.5-14.0); WHITE BLOOD COUNT 15.3 10^3/uL (4.0-10.5)
[2019-01-16 05:32] LABS: ALBUMIN 2.4 g/dL (3.5-5.0); ALKALINE PHOSPHATASE 70 U/L (38-126); ANION GAP 6 (5-19); ASPARTATE AMINO TRANSFERASE 19 U/L (14-36); BILIRUBIN,DIRECT 0.2 mg/dL (0.0-0.4); BILIRUBIN,TOTAL 0.4 mg/dL (0.2-1.3); BLOOD UREA NITROGEN 18 mg/dL (7-20); CALCIUM 8.5 mg/dL (8.4-10.2); CARBON DIOXIDE 31 mmol/L (22-30); CHLORIDE 103 mmol/L (98-107); PHOSPHORUS 4.2 mg/dL (2.5-4.5); POTASSIUM 3.6 mmol/L (3.6-5.0); TOTAL PROTEIN 4.9 g/dL (6.3-8.2)
[2019-01-16 05:43] LABS: AMYLASE < 30 U/L (30-110)
[2019-01-16 05:44] LABS: GLUCOSE 63 mg/dL (75-110)
[2019-01-16 05:46] LABS: ABSOLUTE LYMPHOCYTES# (MANUAL) 1.7 10^3/uL (0.5-4.7); ABSOLUTE MONOCYTES # (MANUAL) 0.2 10^3/uL (0.1-1.4); BASOPHILS % (MANUAL) 0 % (0-2); EOSINOPHILS % (MANUAL) 3 % (0-6); LYMPHOCYTES % (MANUAL) 10 % (13-45); MONOCYTES % (MANUAL) 1 % (3-13); SEGMENTED NEUTROPHILS % (MAN) 85 % (42-78); TOTAL CELLS COUNTED 100
[2019-01-16 05:47] LABS: ANISOCYTOSIS 1+; PLATELET COMMENT ADEQUATE
[2019-01-16] MEDS: PIPERACILLIN SODIUM/TAZOBACTAM 4.5 GM in NORMAL SALINE 100 ML IV SCH ×3 (06:23→21:25)
--- NOTE | 2019-01-16 07:57 | PDOC PROGRESS REPORT ---
Subjective Progress Note for:: 01/16/19 Subjective:: c/o inabiltiy to urinate min abd pain Reason For Visit: PERFORATED COLON Physical Exam Vital Signs: Temp Pulse Resp BP Pulse Ox 98.2 F 94 16 144/84 H 100 01/15/19 23:45 01/15/19 12:00 01/16/19 06:00 01/16/19 03:47 01/16/19 06:00 Intake & Output 01/15/19 01/16/19 01/17/19 06:59 06:59 06:59 Intake Total 2526 1699 100 Output Total 2350 3420 Balance 176 -1721 100 Weight 121.1 kg 118.1 kg General appearance: PRESENT: morbidly obese Head exam: PRESENT: normocephalic Eye exam: PRESENT: EOMI Ear exam: PRESENT: normal external ear exam Mouth exam: PRESENT: moist Neck exam: PRESENT: full ROM Respiratory exam: PRESENT: clear to auscultation tricia Cardiovascular exam: PRESENT: RRR Pulses: PRESENT: normal radial pulses, normal femoral pulses Vascular exam: PRESENT: normal capillary refill GI/Abdominal exam: PRESENT: other - wound clean, dry, no celluliitis, packed open retention sutures in place. ana luisa's with large serous op, stoma functioning. Rectal exam: PRESENT: deferred Extremities exam: PRESENT: +1 edema Musculoskeletal exam: PRESENT: full ROM Neurological exam: PRESENT: alert, awake, oriented to person, oriented to place Psychiatric exam: PRESENT: appropriate affect Skin exam: PRESENT: dry Results Laboratory Results: 01/16/19 04:52 01/16/19 04:52 01/15/19 01/15/19 01/16/19 11:23 11:23 04:52 WBC 15.3 H RBC 3.17 L Hgb 9.1 L Hct 27.6 L MCV 87 MCH 28.8 MCHC 33.1 RDW 16.5 H Plt Count 225 Seg Neutrophils % Not Reportable Sodium 140.7 140.0 Potassium 3.4 L 3.6 Chloride 102 103 Carbon Dioxide 34 H 31 H Anion Gap 5 6 BUN 17 18 Creatinine 1.00 1.19 Est GFR ( Amer) > 60 55 L Glucose 70 L 63 L Calcium 8.6 8.5 Phosphorus 3.6 4.2 Magnesium 1.7 1.7 Total Bilirubin 0.4 0.4 AST 19 19 Alkaline Phosphatase 74 70 Total Protein 5.1 L 4.9 L Albumin 2.6 L 2.4 L Amylase < 30 L Lipase 46.2 01/16/19 04:52 WBC 15.3 H RBC 3.01 L Hgb 8.6 L Hct 26.1 L MCV 87 MCH 28.5 MCHC 32.8 RDW 16.4 H Plt Count 204 Seg Neutrophils % Not Reportable Sodium Potassium Chloride Carbon Dioxide Anion Gap BUN Creatinine Est GFR ( Amer) Glucose Calcium Phosphorus Magnesium Total Bilirubin AST Alkaline Phosphatase Total Protein Albumin Amylase Lipase 01/11/19 20:45 Abdominal Fluid Gram Stain - Final 01/11/19 20:45 Abdominal Fluid Body Fluid Culture - Final NO AEROBIC OR ANAEROBIC ORGANISMS RECOVERED 01/11/19 15:18 Troponin I < 0.012 Impressions: Abdomen X-Ray 01/11/19 15:49 IMPRESSION: NO RADIOGRAPHIC EVIDENCE FOR ACUTE ABDOMINAL DISEASE. Abdomen/Pelvis CT 01/11/19 15:49 IMPRESSION: 1. Findings consistent with a ruptured rectosigmoid colon at the level of a large fecalith within the rectosigmoid colon expanding the lumen. The possibility of mucosal abnormality distal to the ruptured colon not be excluded. Extensive retroperitoneal air and air within the mesentery. Marked c onstipation. Chest X-Ray 01/14/19 06:00 IMPRESSION: Minimal persistent bibasilar atelectasis although improved from prior study. KUB X-Ray 01/15/19 13:53 IMPRESSION: NG tube appears to be in satisfactory position. Assessment & Plan - Time Time Spent with patient: 35 or more minutes - Plan Summary Plan Summary: stilll with ng in place, 1600cc yesterday min ice chips labs reviewed, wbc,15.3 unchanged, hb 8.6 creat wnl lytes ok plan will check ana luisa's for creat place hendrix, as she feels unable to void cont physical rx awaiting return of gastric function, cont ng today.
--- NOTE | 2019-01-16 10:13 | Progress Note ---
Provider Note Provider Note: both ana ulisa's show high creat, no urine via hendrix spoke with radiology will order ct urogram r/o ureter/bladder injruy.
[2019-01-16] MEDS ORDERED: RINGERS SOLUTION,LACTATED 1,000 ML IV PRN (11:12)
[2019-01-16] MEDS: PANTOPRAZOLE SODIUM 40 MG VIAL IV SCH (11:23)
[2019-01-16] MEDS: HYDROCORTISONE SOD SUCCINATE INJ/PF 100 MG/2 ML SDV IV SCH ×2 (11:24→21:32)
--- NOTE | 2019-01-16 13:09 | Progress Note ---
Provider Note Provider Note: ct urogram shows extravasation of dye from the bladder more on the right side being captured well by the right Edgar-Almonte drain. Since this is a intraperitoneal injury with drainage of urine the pelvis Carroll catheter does not completely capture the urine output at this point. We will plan on reexploration with repair of bladder injury. Discussed risks and benefits with the patient which include bleeding infection pulmonary embolism stroke myocardial infarction and injury to adjacent structures of been discussed including injury to the small bowel and colon injury to the recent anastomosis with possible need for a colostomy. She understands these risks and benefits and agrees to proceed
--- NOTE | 2019-01-16 13:16 | RADIOLOGY REPORT (SQ) ---
EXAM DESCRIPTION: CT ABD/PELVIS COMBO COMPLETED DATE/TIME: 01/16/2019 12:12 pm REASON FOR STUDY: rule out ureter/bladder injury. COMPARISON: CT of the abdomen pelvis without contrast from 01/11/2019. TECHNIQUE: Sequential CT images of the abdomen and pelvis were obtained in the axial plane without i ntravenous contrast and after the intravenous administration of contrast in the corticomedullary, nep hrographic, and excretory phases. Coronal, sagittal, and and MPI reformats were reconstructed from t he axial images. All CT scanners at this facility use dose modulation, iterative reconstruction, and/or weight based d osing when appropriate to reduce radiation dose to as low as reasonably achievable (ALARA). [facility]: Dose Right [facility]: CareDose [facility]: Dose Right [facility]: Teradose 4D [facility]: [employer] CONTRAST TYPE AND DOSE: Contrast/concentration: Isovue 350.00 mg/ml; Total Contrast Delivered: 100.0 ml; Total Saline Delivered: 72.0 ml RENAL FUNCTION: Creatinine 1.19 mg per dL. RADIATION DOSE: CT Rad equipment meets quality standard of care and radiation dose reduction techniq ues were employed. CTDIvol: 20.1 - 33.8 mGy. DLP: 4797 mGy-cm. . LIMITATIONS: None. FINDINGS: NON-CONTRASTED IMAGING: The diffuse low attenuation of hepatic parenchyma is consistent wi th hepatic steatosis. There are several right-sided caliceal calculi that measure up to 4 mm in diam eter. POST-CONTRASTED IMAGING: LOWER CHEST: Bibasilar atelectasis and cardiomegaly. There is no pericardial or pleural effusion. LIVER: The liver morphology is non cirrhotic. The portal and hepatic veins are patent. There is pne umobilia in the left lower lobe. There is no hepatic mass . SPLEEN: No splenomegaly. There is a hypervascular splenic lesion that measures 9 mm in diameter. PANCREAS: Dystrophic calcification along the undersurface of the pancreatic body (image 58 of series 5). There is no pancreatic ductal dilatation. GALLBLADDER: The gallbladder is surgically absent. ADRENAL GLANDS: No abnormality. RIGHT KIDNEY AND URETER: No solid mass, hydronephrosis or hydroureter. There is no ureteral extravas ation on the excretory phase. LEFT KIDNEY AND URETER: No solid mass, hydronephrosis or hydroureter. There is no ureter extravasati on on the excretory phase. AORTA AND VESSELS: No abdominal aortic aneurysm or dissection. The abdominopelvic vasculature is pat ent. RETROPERITONEUM: No retroperitoneal adenopathy, hemorrhage or mass. BOWEL AND PERITONEAL CAVITY: Status post bowel resection and creation of a right lower quadrant ileos ferdinand. The tip of the enteric tube terminates within the gastric lumen. There are 2 Edgar-Almonte brenda ins in place ; the left-sided drain terminates near the duodenal fossa ; the right-sided drain termin ates in the left lower quadrant. There is no evidence of obstruction. There is a trace amount of fr ee fluid along the paracolic gutters. There are also foci of free intraperitoneal air that are relat ed to recent laparotomy. There is no intra-abdominal collection. APPENDIX: Unable to identify the appendix but there is no pericecal inflammation to suggest an acute appendicitis. PELVIS: There is a Carroll catheter within the urinary bladder. On the excretory phase there is extrav asation of the injected intravenous contrast from the anterior aspect of the urinary bladder. There is no pelvic adenopathy or mass. ABDOMINAL WALL: Laparotomy incision. BONES: Postoperative and degenerative findings seen the lumbar spine. There is no acute fracture. OTHER: No other finding. IMPRESSION: 1. Laceration of the anterior urinary bladder with extravasation of the injected intrave nous contrast. There is no evidence of ureteral injury. 2. Other secondary findings as detailed above. COMMENT: This report was called to JEFFERY SANTILLAN MD at13:08 on 01/16/2019. TECHNICAL DOCUMENTATION: JOB ID: [id number] Quality ID # [id number]: Final reports with documentation of one or more dose reduction techniques (e.g., Au tomated exposure control, adjustment of the mA and/or kV according to patient size, use of iterative reconstruction technique) 2010 [employer]- All Rights Reserved Reading location - IP/workstation name: [facility]ISIT[facility] [email or web address]
[2019-01-16] MEDS: ENOXAPARIN SODIUM INJ 40 MG/0.4 ML DISP.SYRIN SUBCUT SCH (13:56)
[2019-01-16] MEDS: DEXTROSE 5%-LACTATED RINGERS 1,000 ML IV PRN (13:59)
[2019-01-16] MEDS ORDERED: DEXAMETHASONE SOD PHOSPHATE INJ 4 MG/1 ML VIAL ONE (17:46)
[2019-01-16] MEDS ORDERED: MORPHINE SULFATE 10 MG/ML INJ ONE (17:46)
[2019-01-16] MEDS ORDERED: MIDAZOLAM 2 MG/2 ML INJ ONE (17:46)
[2019-01-16] MEDS ORDERED: FENTANYL CITRATE INJ/PF 250 MCG/5 ML AMPULE ONE (17:46)
[2019-01-16] MEDS ORDERED: ONDANSETRON HCL INJ/PF 4 MG/2 ML SDV ONE (17:46)
[2019-01-16] MEDS ORDERED: LIDOCAINE 0.5%/EPINEPHRINE INJ 50 ML VIAL ONE (17:46)
[2019-01-16] MEDS ORDERED: PROPOFOL INJ 200 MG/20 ML VIAL IV ONE (17:47)
[2019-01-16] MEDS ORDERED: BUPIVACAINE HCL 0.25 % INJ/PF (2.5 MG/1 ML) 30 ML VIAL ONE (18:11)
[2019-01-16] MEDS ORDERED: METHYLENE BLUE 50 MG/10 ML AMPULE ONE (18:28)
[2019-01-16] MEDS ORDERED: SUGAMMADEX SODIUM 200 MG/2 ML SDV IV ONE (18:48)
--- NOTE | 2019-01-16 19:43 | Operative Report ---
Nonrecallable Operative Report DATE OF SURGERY: 01/16/19 PREOPERATIVE DIAGNOSIS: Urinary bladder perforation POSTOPERATIVE DIAGNOSIS: Urinary bladder perforation OPERATION: Repair of urinary bladder perforation SURGEON: JEFFERY BETHEA HALVER MACHINE OPERATOR: SLAVA RASMUSSEN ANESTHESIA: GA TISSUE REMOVED OR ALTERED: None COMPLICATIONS: None ESTIMATED BLOOD LOSS: 50 cc INTRAOPERATIVE FINDINGS: See dictation PROCEDURE: Patient was brought to the operating awake alert stable condition placed in the operative table supine position induced under general anesthesia intubated After appropriate timeout site verification procedure commenced. The retention sutures were previously removed during the prep we then opened the fascial running Maxon suture with a Metzenbaum scissors and unraveled the max incision we immediately gained access to the abdominal cavity there is not a significant amount of adhesions or fibrin deposition in this early postoperative abdominal wound. Attention was then turned to the lower abdomen we retracted the small bowel cephalad and immediately noted the bladder. There was a possibly 6 to 8 cm longitudinal rupture of the dome of the bladder with obvious mucosa emanating from the laceration. The 2 edges of the laceration were grasped with Allis clamps and then closed with a running 0 Vicryl suture and after closure of the mucosa the suture line was then imbricated with interrupted 2-0 Vicryl sutures. The wound was then copiously irrigated normal saline suctioned dry the abdominal cavity was irrigated with normal saline suctioned dry. We returned the omentum to the pelvis we placed a piece of Vicryl mesh on top of the omentum underneath the fascial edges and closed the fascia with interrupted #2 Vicryl sutures we placed through the 0 nylon fascial retention sutures and then packed the wound with a saline soaked Kerlix gauze. The colostomy appliance was reapplied to the loop ileostomy on the right abdominal wall. This completed the procedure estimated blood loss was less than 50 cc sponge needle counts were correct x2 the patient was then transferred to recovery in stable condition.
[2019-01-16] MEDS: MEPERIDINE HCL/PF INJ 25 MG/1 ML DISP.SYRIN ONE ×2 (19:45→19:55)
[2019-01-16] MEDS ORDERED: ACETAMINOPHEN 1,000 MG/100 ML RTUPB IV ONE (20:17)
[2019-01-16] MEDS: FLUCONAZOLE 400 MG/NS RTU 400 MG/200 ML RTUPB IV SCH (21:26)
[2019-01-16] MEDS: NORTRIPTYLINE HCL 25 MG CAPSULE PO SCH (21:26)
[2019-01-16] MEDS ORDERED: HYDROMORPHONE HCL INJ/PF 2 MG/ML AMPULE IV PRN (22:37)
[2019-01-16] MEDS ORDERED: HYDROMORPHONE HCL INJ/PF 2 MG/ML AMPULE ONE (22:44)
[2019-01-17] MEDS: PIPERACILLIN SODIUM/TAZOBACTAM 4.5 GM in NORMAL SALINE 100 ML IV SCH ×4 (00:30→18:53)
[2019-01-17] MEDS: HYDROMORPHONE HCL INJ/PF 2 MG/ML AMPULE IV PRN ×6 (01:06→23:02)
[2019-01-17 05:34] LABS: HEMATOCRIT 21.6 % (36.0-47.0); MEAN CORPUSCULAR HEMOGLOBIN 27.9 pg (27.0-33.4); MEAN CORPUSCULAR HGB CONC 31.6 g/dL (32.0-36.0); MEAN CORPUSCULAR VOLUME 88 fl (80-97); PLATELET COUNT 302 10^3/uL (150-450); RED BLOOD COUNT 2.44 10^6/uL (3.72-5.28); RED CELL DISTRIBUTION WIDTH 16.4 % (11.5-14.0); WHITE BLOOD COUNT 26.7 10^3/uL (4.0-10.5)
[2019-01-17 06:03] LABS: ANION GAP 10 (5-19); BLOOD UREA NITROGEN 13 mg/dL (7-20); CALCIUM 8.2 mg/dL (8.4-10.2); CARBON DIOXIDE 27 mmol/L (22-30); CHLORIDE 107 mmol/L (98-107); GLUCOSE 111 mg/dL (75-110); PHOSPHORUS 5.4 mg/dL (2.5-4.5); POTASSIUM 4.3 mmol/L (3.6-5.0)
[2019-01-17 06:14] LABS: HEMOGLOBIN 6.8 g/dL (12.0-15.5)
[2019-01-17] MEDS ORDERED: NORMAL SALINE 250 ML IV PRN (07:08)
--- NOTE | 2019-01-17 09:56 | PDOC PROGRESS REPORT ---
Subjective Progress Note for:: 01/17/19 Subjective:: Patient in the ICU, room 6 awake, extubated, uneventful night following reexploration, repair of bladder hole yesterday evening by . Minimal nasogastric drainage. Reason For Visit: PERFORATED COLON Physical Exam Vital Signs: Temp Pulse Resp BP Pulse Ox 98.9 F 104 H 21 H 96/48 L 100 01/17/19 08:00 01/17/19 08:00 01/17/19 08:00 01/17/19 08:00 01/17/19 09:35 Intake & Output 01/16/19 01/17/19 01/18/19 06:59 06:59 06:59 Intake Total 1699 1600 Output Total 3420 7009 669 Balance -7775 -673 -206 Weight 118.1 kg 119.6 kg General appearance: PRESENT: no acute distress, other - Cooperative alert and oriented x4 GI/Abdominal exam: PRESENT: other - Dressings removed. Midline wound approximated with retention sutures; ileostomy putting out liquid and semi- particulate green sucuus; other drains with serosanguineous drainage; some dilute blood in the Carroll catheter which is draining fairly clear urine; no drainage from midline incision at this time Results Laboratory Results: 01/17/19 05:24 01/17/19 05:24 01/17/19 01/17/19 01/17/19 05:24 05:24 07:29 WBC 26.7 H RBC 2.44 L Hgb 6.8 L Hct 21.6 L MCV 88 MCH 27.9 MCHC 31.6 L RDW 16.4 H Plt Count 302 Sodium 143.8 Potassium 4.3 Chloride 107 Carbon Dioxide 27 Anion Gap 10 BUN 13 Creatinine 1.20 Est GFR ( Amer) 55 L Glucose 111 H Calcium 8.2 L Phosphorus 5.4 H Magnesium 1.5 L Blood Type O POSITIVE Antibody Screen NEGATIVE 01/11/19 15:18 Blood Blood Culture - Final NO GROWTH IN 5 DAYS 01/11/19 15:18 Troponin I < 0.012 Impressions: Abdomen X-Ray 01/11/19 15:49 IMPRESSION: NO RADIOGRAPHIC EVIDENCE FOR ACUTE ABDOMINAL DISEASE. Chest X-Ray 01/14/19 06:00 IMPRESSION: Minimal persistent bibasilar atelectasis although improved from prior study. KUB X-Ray 01/15/19 13:53 IMPRESSION: NG tube appears to be in satisfactory position. Abdomen/Pelvis CT 01/16/19 00:00 IMPRESSION: 1. Laceration of the anterior urinary bladder with extravasation of the injected intravenous contrast. There is no evidence of ureteral injury. 2. Other secondary findings as detailed above. Assessment & Plan - Time Time Spent with patient: 15-24 minutes - Plan Summary Plan Summary: Impression: Patient is postoperative day 5 initial exploratory laparotomy, sigmoid colectomy, primary anastomosis, protective ileostomy followed by reexploration 18 hours ago for bladder leak, with primary bladder repair, doing reasonably well overnight on venous antibiotics, IV steroids for chronic lupus, extubated, hemodynamically stable on no pressors. Recommendations: 1. We will discontinue nasogastric tube 2. We will get a trapeze to bed, in hopes of getting patient up right 3. Will flush Carroll catheter of sporadic hematuria on a 3 times daily basis 4. Keep patient in ICU today; discussed the above plan with RN, and aviculturist
--- NOTE | 2019-01-17 09:58 | PDOC CRITICAL CARE PROG REPORT ---
General Date:: 01/17/19 ICU Day:: 5 Events in the past 12 to 24 Hours:: Back to OR for bladder repair. Review of systems relevant to events:: No SP pain. Weak. Reason for ICU Addmission:: Surgery last night. Low H/H and need for transfusion. - Medications: Medications reviewed and adjusted accordingly: Yes Vasopressors:: No Sedation:: No Physical Exam Vital Signs: Temp Pulse Resp BP Pulse Ox 98.9 F 104 H 21 H 96/48 L 100 01/17/19 08:00 01/17/19 08:00 01/17/19 08:00 01/17/19 08:00 01/17/19 09:35 Intake & Output 01/16/19 01/17/19 01/18/19 06:59 06:59 06:59 Intake Total 1699 1600 Output Total 3420 1985 780 Balance -1721 -385 -780 Weight 118.1 kg 119.6 kg Weight/Height Weight 119.6 kg Height 5 ft 6 in General appearance: PRESENT: no acute distress, well-developed, well-nourished Head exam: PRESENT: atraumatic, normocephalic Ear exam: PRESENT: normal external ear exam Mouth exam: PRESENT: moist, tongue midline Respiratory exam: PRESENT: clear to auscultation tricia. ABSENT: rales, rhonchi, w heezes Cardiovascular exam: PRESENT: RRR, tachycardia. ABSENT: diastolic murmur, rubs, systolic murmur Vascular exam: PRESENT: normal capillary refill GI/Abdominal exam: PRESENT: normal bowel sounds, soft, other - Incisional tenderness.. ABSENT: distended, guarding, mass, organolmegaly, rebound, tenderness Rectal exam: PRESENT: deferred Extremities exam: PRESENT: full ROM. ABSENT: calf tenderness, clubbing, pedal edema Musculoskeletal exam: PRESENT: normal inspection Neurological exam: PRESENT: alert, awake, oriented to person, oriented to place, oriented to time, oriented to situation, CN II-XII grossly intact. ABSENT: motor sensory deficit Skin exam: PRESENT: pallor Laboratory/Radiographs Laboratory Results: 01/17/19 05:24 01/17/19 05:24 01/17/19 01/17/19 01/17/19 05:24 05:24 07:29 WBC 26.7 H RBC 2.44 L Hgb 6.8 L Hct 21.6 L MCV 88 MCH 27.9 MCHC 31.6 L RDW 16.4 H Plt Count 302 Sodium 143.8 Potassium 4.3 Chloride 107 Carbon Dioxide 27 Anion Gap 10 BUN 13 Creatinine 1.20 Est GFR ( Amer) 55 L Glucose 111 H Calcium 8.2 L Phosphorus 5.4 H Magnesium 1.5 L Blood Type O POSITIVE Antibody Screen NEGATIVE 01/11/19 15:18 Blood Blood Culture - Final NO GROWTH IN 5 DAYS 01/11/19 15:18 Troponin I < 0.012 Impressions: Abdomen X-Ray 01/11/19 15:49 IMPRESSION: NO RADIOGRAPHIC EVIDENCE FOR ACUTE ABDOMINAL DISEASE. Chest X-Ray 01/14/19 06:00 IMPRESSION: Minimal persistent bibasilar atelectasis although improved from prior study. KUB X-Ray 01/15/19 13:53 IMPRESSION: NG tube appears to be in satisfactory position. Abdomen/Pelvis CT 01/16/19 00:00 IMPRESSION: 1. Laceration of the anterior urinary bladder with extravasation of the injected intravenous contrast. There is no evidence of ureteral injury. 2. Other secondary findings as detailed above. All labs, radiographs, diagnostic studies and EKGs were personally reviewed: Yes In addition, reports of radiographic and diagnostic studies were read: Yes Assessment and Plan - Diagnosis (1) Bladder perforation, intraoperative Is this a current diagnosis for this admission?: Yes Plan: Repaired yesterday with second surgery. (2) Bacterial peritonitis Is this a current diagnosis for this admission?: Yes Plan: Resolved with first surgery, no abcess. (3) Chronic steroid use Is this a current diagnosis for this admission?: Yes Plan: Try to minimize in the face of wound healing. (4) Immunosuppression due to drug therapy Is this a current diagnosis for this admission?: Yes Plan: Same (5) Lupus (systemic lupus erythematosus) Qualifiers: Systemic lupus erythematosus type: unspecified Systemic lupus erythematosus organ involvement: other Qualified Code(s): M32.19 - Other organ or system involvement in systemic lupus erythematosus Is this a current diagnosis for this admission?: Yes Plan: Thus far not active. Plan Summary: Irrigat hendrix. Keep hydrated. If stable downgrade in AM. Critical Time Critical Time (minutes): 35 Level of Care: ICU Anticipated discharge: Home Within: Other -: 1. The care of a critical patient is a dynamic process. This note is a office machines sales representative synopsis but static in nature. The timeframe for treatments given in order is not necessary the actual time these treatments may have been done. 2. This patient requires critical care secondary to ongoing requirements for therapy not offered or safe outside the critical care environment. Transfer to a lower level of care with altered life or limb morbidity and mortality. 3. Multidisciplinary rounds completed. 4. ABCDE bundle addressed.
[2019-01-17] MEDS: HYDROCORTISONE SOD SUCCINATE INJ/PF 100 MG/2 ML SDV IV SCH ×2 (12:15→22:39)
[2019-01-17] MEDS: ENOXAPARIN SODIUM INJ 40 MG/0.4 ML DISP.SYRIN SUBCUT SCH (12:16)
[2019-01-17] MEDS: DEXTROSE 5%-LACTATED RINGERS 1,000 ML IV PRN (18:54)
[2019-01-17] MEDS: FLUCONAZOLE 400 MG/NS RTU 400 MG/200 ML RTUPB IV SCH (22:32)
[2019-01-17] MEDS: NORTRIPTYLINE HCL 25 MG CAPSULE PO SCH (22:34)
[2019-01-17 22:58] LABS: HEMATOCRIT 28.3 % (36.0-47.0); MEAN CORPUSCULAR HEMOGLOBIN 29.2 pg (27.0-33.4); MEAN CORPUSCULAR HGB CONC 33.2 g/dL (32.0-36.0); MEAN CORPUSCULAR VOLUME 88 fl (80-97); PLATELET COUNT 204 10^3/uL (150-450); RED BLOOD COUNT 3.23 10^6/uL (3.72-5.28); RED CELL DISTRIBUTION WIDTH 15.8 % (11.5-14.0); WHITE BLOOD COUNT 17.5 10^3/uL (4.0-10.5)
[2019-01-17 22:59] LABS: HEMOGLOBIN 9.4 g/dL (12.0-15.5)
[2019-01-17 23:22] LABS: ABSOLUTE LYMPHOCYTES# (MANUAL) 4.6 10^3/uL (0.5-4.7); ABSOLUTE MONOCYTES # (MANUAL) 0.9 10^3/uL (0.1-1.4); BASOPHILS % (MANUAL) 0 % (0-2); EOSINOPHILS % (MANUAL) 1 % (0-6); LYMPHOCYTES % (MANUAL) 26 % (13-45); MONOCYTES % (MANUAL) 5 % (3-13); NUCLEATED RED BLOOD CELLS 1 /100 WBC (0); SEGMENTED NEUTROPHILS % (MAN) 68 % (42-78); TOTAL CELLS COUNTED 100
[2019-01-17 23:23] LABS: ANISOCYTOSIS SLIGHT; HYPOCHROMASIA 1+; PLATELET COMMENT ADEQUATE
[2019-01-18] MEDS: HYDROMORPHONE HCL INJ/PF 2 MG/ML AMPULE IV PRN ×4 (05:30→21:10)
[2019-01-18] MEDS: DEXTROSE 5%-LACTATED RINGERS 1,000 ML IV PRN ×2 (05:55→18:20)
[2019-01-18] MEDS: PIPERACILLIN SODIUM/TAZOBACTAM 4.5 GM in NORMAL SALINE 100 ML IV SCH ×5 (05:58→18:36)
--- NOTE | 2019-01-18 08:06 | PDOC PROGRESS REPORT ---
Subjective Progress Note for:: 01/18/19 Subjective:: sl more lethargic this am hendrix replaced last pm with triple lumen due to clots. irritated this am with good return stoma functioning Reason For Visit: PERFORATED COLON Physical Exam Vital Signs: Temp Pulse Resp BP Pulse Ox 98.7 F 100 12 133/83 H 98 01/18/19 04:00 01/17/19 20:30 01/18/19 06:00 01/18/19 05:18 01/18/19 06:00 Intake & Output 01/17/19 01/18/19 01/19/19 06:59 06:59 06:59 Intake Total 1900 2631 Output Total 1985 1225 Balance -85 1406 Weight 119.6 kg 122.9 kg General appearance: PRESENT: no acute distress Head exam: PRESENT: normocephalic Eye exam: PRESENT: EOMI Ear exam: PRESENT: normal external ear exam Mouth exam: PRESENT: dry mucosa Neck exam: PRESENT: full ROM Cardiovascular exam: PRESENT: RRR Pulses: PRESENT: normal radial pulses, normal femoral pulses Vascular exam: PRESENT: normal capillary refill, pallor GI/Abdominal exam: PRESENT: other - abd sl more distended wound clean dressing intact Rectal exam: PRESENT: deferred Gentrourinary exam: PRESENT: indwelling catheter Extremities exam: PRESENT: full ROM Musculoskeletal exam: PRESENT: full ROM Neurological exam: PRESENT: alert, awake, oriented to person, oriented to place Psychiatric exam: PRESENT: appropriate affect Skin exam: PRESENT: dry Results Laboratory Results: 01/17/19 22:43 01/17/19 05:24 01/17/19 01/17/19 07:29 22:43 WBC 17.5 H RBC 3.23 L Hgb 9.4 L D Hct 28.3 L MCV 88 MCH 29.2 MCHC 33.2 RDW 15.8 H Plt Count 204 Seg Neutrophils % Not Reportable Blood Type O POSITIVE Antibody Screen NEGATIVE 01/11/19 15:18 Troponin I < 0.012 Impressions: Abdomen X-Ray 01/11/19 15:49 IMPRESSION: NO RADIOGRAPHIC EVIDENCE FOR ACUTE ABDOMINAL DISEASE. Chest X-Ray 01/14/19 06:00 IMPRESSION: Minimal persistent bibasilar atelectasis although improved from prior study. KUB X-Ray 01/15/19 13:53 IMPRESSION: NG tube appears to be in satisfactory position. Abdomen/Pelvis CT 01/16/19 00:00 IMPRESSION: 1. Laceration of the anterior urinary bladder with extravasation of the injected intravenous contrast. There is no evidence of ureteral injury. 2. Other secondary findings as detailed above. Assessment & Plan - Time Time Spent with patient: 35 or more minutes - Plan Summary Plan Summary: will start bladder irrigations discussed iwth intensivisit will check cvp may need mnore iv fluid 'cont iv abx
--- NOTE | 2019-01-18 11:28 | PDOC CRITICAL CARE PROG REPORT ---
General Date:: 01/18/19 ICU Day:: 8 Hospital Day:: 8 Events in the past 12 to 24 Hours:: [address] he[address] placed. Clots in urine have stopped. NG out. Review of systems relevant to events:: Less abd pain. Not moving OOB, No nausea. Reason for ICU Addmission:: Surgery last night. Low H/H and need for transfusion. - Medications: Medications reviewed and adjusted accordingly: Yes Vasopressors:: No Sedation:: None Physical Exam Vital Signs: Temp Pulse Resp BP Pulse Ox 98.1 F 100 13 118/41 L 96 01/18/19 10:00 01/18/19 11:14 01/18/19 10:19 01/18/19 10:19 01/18/19 10:00 Intake & Output 01/17/19 01/18/19 01/19/19 06:59 06:59 06:59 Intake Total 1900 2631 230 Output Total 1985 1225 175 Balance -85 1406 55 Weight 119.6 kg 122.9 kg Weight/Height Weight 122.9 kg Height 5 ft 6 in General appearance: PRESENT: no acute distress, well-developed, well-nourished Head exam: PRESENT: atraumatic, normocephalic Eye exam: PRESENT: conjunctiva pink, EOMI, PERRLA. ABSENT: scleral icterus Ear exam: PRESENT: normal external ear exam Mouth exam: PRESENT: moist, tongue midline Respiratory exam: PRESENT: clear to auscultation tricia. ABSENT: rales, rhonchi, wheezes Cardiovascular exam: PRESENT: RRR. ABSENT: diastolic murmur, rubs, systolic murmur GI/Abdominal exam: PRESENT: normal bowel sounds, soft, other - Ileostomy putting out green material. Wound open fascia closed. JPs putting out serosanguinous fluid. ABSENT: distended, guarding, mass, organolmegaly, rebound, tenderness Rectal exam: PRESENT: deferred Gentrourinary exam: PRESENT: indwelling catheter, other - Some hematuria, no more clots. Extremities exam: PRESENT: full ROM, tenderness Musculoskeletal exam: PRESENT: normal inspection Neurological exam: PRESENT: alert, awake, oriented to person, oriented to place, oriented to time, oriented to situation, CN II-XII grossly intact. ABSENT: motor sensory deficit Skin exam: PRESENT: dry, intact, warm. ABSENT: cyanosis, rash Tubes/Lines: PRESENT: Other - YANELY drains X 2. Laboratory/Radiographs Laboratory Results: 01/17/19 22:43 01/17/19 05:24 01/17/19 01/17/19 07:29 22:43 WBC 17.5 H RBC 3.23 L Hgb 9.4 L D Hct 28.3 L MCV 88 MCH 29.2 MCHC 33.2 RDW 15.8 H Plt Count 204 Seg Neutrophils % Not Reportable Blood Type O POSITIVE Antibody Screen NEGATIVE 01/11/19 15:18 Troponin I < 0.012 Impressions: Abdomen X-Ray 01/11/19 15:49 IMPRESSION: NO RADIOGRAPHIC EVIDENCE FOR ACUTE ABDOMINAL DISEASE. Chest X-Ray 01/14/19 06:00 IMPRESSION: Minimal persistent bibasilar atelectasis although improved from prior study. KUB X-Ray 01/15/19 13:53 IMPRESSION: NG tube appears to be in satisfactory position. Abdomen/Pelvis CT 01/16/19 00:00 IMPRESSION: 1. Laceration of the anterior urinary bladder with extravasation of the injected intravenous contrast. There is no evidence of ureteral injury. 2. Other secondary findings as detailed above. All labs, radiographs, diagnostic studies and EKGs were personally reviewed: Yes In addition, reports of radiographic and diagnostic studies were read: Yes Assessment and Plan - Diagnosis (1) Bladder perforation, intraoperative Is this a current diagnosis for this admission?: Yes Plan: Repaired. Hematuria present as expected clots resolved [address] (2) Bacterial peritonitis Is this a current diagnosis for this admission?: Yes Plan: Resolved (3) Chronic steroid use Is this a current diagnosis for this admission?: Yes Plan: Neede for SLE. Wound healing a concern. (4) Immunosuppression due to drug therapy Is this a current diagnosis for this admission?: Yes Plan: Between steroids, plaquinil she is chronically immunosuppresed. (5) Lupus (systemic lupus erythematosus) Qualifiers: Systemic lupus erythematosus type: unspecified Systemic lupus erythematosus organ involvement: other Qualified Code(s): M32.19 - Other organ or system involvement in systemic lupus erythematosus Is this a current diagnosis for this admission?: Yes Plan: May be a pain and stiffness problem in mobilizing her today. Plan Summary: OOB to chair. If stable hope to transfer Saturday. Critical Time Critical Time (minutes): 35 Level of Care: ICU Anticipated discharge: SNF Within: Other -: 1. The care of a critical patient is a dynamic process. This note is a inside sales representative synopsis but static in nature. The timeframe for treatments given in order is not necessary the actual time these treatments may have been done. 2. This patient requires critical care secondary to ongoing requirements for therapy not offered or safe outside the critical care environment. Transfer to a lower level of care with altered life or limb morbidity and mortality. 3. Multidisciplinary rounds completed. 4. ABCDE bundle addressed.
[2019-01-18] MEDS: HYDROCORTISONE SOD SUCCINATE INJ/PF 100 MG/2 ML SDV IV SCH (11:54)
[2019-01-18] MEDS: ENOXAPARIN SODIUM INJ 40 MG/0.4 ML DISP.SYRIN SUBCUT SCH (11:54)
[2019-01-18 12:43] LABS: HEMATOCRIT 22.1 % (36.0-47.0); MEAN CORPUSCULAR HEMOGLOBIN 29.1 pg (27.0-33.4); MEAN CORPUSCULAR VOLUME 88 fl (80-97); PLATELET COUNT 229 10^3/uL (150-450); RED CELL DISTRIBUTION WIDTH 16.2 % (11.5-14.0); WHITE BLOOD COUNT 16.9 10^3/uL (4.0-10.5)
[2019-01-18 13:02] LABS: ALKALINE PHOSPHATASE 64 U/L (38-126); ANION GAP 6 (5-19); ASPARTATE AMINO TRANSFERASE 30 U/L (14-36); BILIRUBIN,DIRECT 0.2 mg/dL (0.0-0.4); BILIRUBIN,TOTAL 0.3 mg/dL (0.2-1.3); BLOOD UREA NITROGEN 20 mg/dL (7-20); CALCIUM 7.7 mg/dL (8.4-10.2); CARBON DIOXIDE 29 mmol/L (22-30); CHLORIDE 108 mmol/L (98-107); GLUCOSE 155 mg/dL (75-110); POTASSIUM 3.7 mmol/L (3.6-5.0); TOTAL PROTEIN 4.5 g/dL (6.3-8.2)
[2019-01-18 13:11] LABS: ABSOLUTE MONOCYTES # (MANUAL) 1.4 10^3/uL (0.1-1.4); BASOPHILS % (MANUAL) 0 % (0-2); EOSINOPHILS % (MANUAL) 0 % (0-6); LYMPHOCYTES % (MANUAL) 12 % (13-45); METAMYELOCYTES % (MANUAL) 1 % (0-1); MONOCYTES % (MANUAL) 8 % (3-13); SEGMENTED NEUTROPHILS % (MAN) 79 % (42-78); TOTAL CELLS COUNTED 100
[2019-01-18 13:12] LABS: ANISOCYTOSIS 1+
[2019-01-18 13:13] LABS: HEMOGLOBIN 7.3 g/dL (12.0-15.5); HYPOCHROMASIA SLIGHT; PLATELET COMMENT ADEQUATE; POLYCHROMASIA SLIGHT
[2019-01-18 13:30] LABS: HEMATOCRIT 23.4 % (36.0-47.0); MEAN CORPUSCULAR HEMOGLOBIN 28.7 pg (27.0-33.4); MEAN CORPUSCULAR HGB CONC 32.5 g/dL (32.0-36.0); MEAN CORPUSCULAR VOLUME 88 fl (80-97); PLATELET COUNT 219 10^3/uL (150-450); RED BLOOD COUNT 2.65 10^6/uL (3.72-5.28); RED CELL DISTRIBUTION WIDTH 16.2 % (11.5-14.0); WHITE BLOOD COUNT 17.6 10^3/uL (4.0-10.5)
[2019-01-18 13:32] LABS: HEMOGLOBIN 7.6 g/dL (12.0-15.5)
[2019-01-18] MEDS ORDERED: NORMAL SALINE 250 ML IV PRN ×2 (13:35)
[2019-01-18] MEDS ORDERED: FUROSEMIDE 40 MG TABLET PO PRN (13:35)
--- NOTE | 2019-01-18 14:57 | RADIOLOGY REPORT (SQ) ---
EXAM DESCRIPTION: U/S RETROPERITON (RENAL/AORTA) COMPLETED DATE/TIME: 01/18/2019 2:28 pm REASON FOR STUDY: rule out post renal obstruction COMPARISON: CT abdomen and pelvis 01/16/2019. TECHNIQUE: Dynamic and static grayscale images acquired of the kidneys and bladder and recorded on P ACS. Additional selected color Doppler images recorded. LIMITATIONS: None. FINDINGS: RIGHT KIDNEY: Measures 10.1 x 6.8 x 6.1 cm. Normal echogenicity. No hydronephrosis. No simran cifications. LEFT KIDNEY: Measures 12.1 x 6.6 x 6.7 cm. Normal echogenicity. No hydronephrosis. No calcifications . BLADDER: Partially distended. The ureteral jets were not visualized. IMPRESSION: No hydronephrosis. TECHNICAL DOCUMENTATION: JOB ID: [id number] 2010 [employer]- All Rights Reserved Reading location - IP/workstation name: [email or web address]
--- NOTE | 2019-01-18 15:22 | PDOC DISCHARGE SUMMARY ---
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 She had a stercoral ulcer and underwent a exploratory laparotomy, sigmoidectomy with primary anastomosis and diverting ileostomy. Central line placed as well. She did well initially but put out yellow fluid from her YANELY drains C/W a urine leak. She was found to have a bladder tear and was taken back to the OR 01/16 for a bladder repair. Although she is awake and alert and comfortable and has been up to a chair she required 2 units of blood for a Hgb of 7.3. Post transfusion it came up to 9.4 but today is back down to 7.3. She is receiving one of 2 more units. Her Cr has gone from 1.2 to 2.1 overnight with some blood clots and hematuria but not enough to explain such a drop. At this stage urology input is required which is not available at [facility]. She may very well need cystoscopy and CBI may stress the repair line. She will be sent to [facility] under the service of Dr. Trena Jeff with a urology consult. Other pertinent history is SLE foe which she is on chronic steroids of prednisone 5mg. a day. Cell cept as well. No signs of infection. Wound healing by secondary intention with retention sutures. - Additional Information Resuscitation Status: Full Code Discharge Diet: Clear Liquids Discharge Activity: Other - OOB to chair Home Medications: Amlodipine Besylate [Norvasc 5 mg Tablet] 5 mg PO DAILY 01/12/19 Aspirin [Ecotrin 325 mg EC Tablet] 325 mg PO DAILY 01/12/19 Azelastine 0.1% (137 Mcg) 2 spray NS BID 01/12/19 Carvedilol [Coreg 25 mg Tablet] 1 tab PO Q12 01/12/19 Celecoxib [Celebrex 200 mg Capsule] 200 mg PO Q12 01/12/19 Diclofenac Sodium [Voltaren] 2 gm TP QIDP PRN 01/12/19 Fluticasone Propionate [Flonase Nasal Climax 50 Mcg/Climax 16 gm] 1 spray NASL DAILY 01/12/19 Hydrocodone/Acetaminophen [[place] 5-325 mg Tablet] 1 tab PO TIDP PRN 01/12/19 Hydroxychloroquine Sulfate [Plaquenil 200 mg Tablet] 200 mg PO Q12 01/12/19 Levothyroxine Sodium [Synthroid 0.075 mg Tablet] 37.5 mcg PO Q6AM 01/12/19 Losartan Potassium [Cozaar 100 mg Tablet] 100 mg PO DAILY 01/12/19 Magnesium Oxide [Magox] 800 mg PO DAILY 01/12/19 Montelukast Sodium [Singulair 10 mg Tablet] 10 mg PO DAILY 01/12/19 Morphine Sulfate [Ms Contin] 15 mg PO QHS 01/12/19 Nortriptyline HCl [Pamelor] 150 mg PO QHS 01/12/19 Ondansetron HCl [Zofran 8 mg Tablet] 8 mg PO TIDP PRN 01/12/19 Oxybutynin Chloride [Oxybutynin Chloride ER] 15 mg PO DAILY 01/12/19 Pantoprazole Sodium [Protonix [address] Tablet] 40 mg PO Q6AM 01/12/19 Triamterene/Hydrochlorothiazid [Maxzide-25 Tablet] 1 tab PO DAILY 01/12/19 History of Present Illiness History of Present Illness: ALYSON RIVERA is a 63 year old female with a perforated colon from a stercoral ulcer and bladder repair but needing a urologist for further treatment and care. See "Course". Hospital Course Hospital Course: Perforated colon with repair and resulting ileostomy. Bladder injury repaired but in need of a urologist for definitive treatment. Physical Exam Vital Signs: Temp Pulse Resp BP Pulse Ox 98.6 F 97 16 131/57 H 99 01/18/19 14:00 01/18/19 14:00 01/18/19 14:00 01/18/19 14:00 01/18/19 14:00 Intake & Output 01/17/19 01/18/19 01/19/19 06:59 06:59 06:59 Intake Total 4013 9168 1079 Output Total 3357 1225 400 Balance -85 1706 679 Weight 119.6 kg 122.9 kg General appearance: PRESENT: no acute distress, well-developed, well-nourished Head exam: PRESENT: atraumatic, normocephalic Eye exam: PRESENT: conjunctiva pink, EOMI, PERRLA. ABSENT: scleral icterus Ear exam: PRESENT: normal external ear exam Respiratory exam: PRESENT: clear to auscultation tricia. ABSENT: rales, rhonchi, wheezes Cardiovascular exam: PRESENT: RRR. ABSENT: diastolic murmur, rubs, systolic murmur GI/Abdominal exam: PRESENT: tenderness, other - JPs with serosanguinous fluid. Wound with closed fascia, open skin and sub cutaneous tissue. Rectal exam: PRESENT: deferred Gentrourinary exam: PRESENT: indwelling catheter Extremities exam: PRESENT: full ROM. ABSENT: calf tenderness, clubbing, pedal edema Musculoskeletal exam: PRESENT: full ROM, normal inspection Neurological exam: PRESENT: alert, awake, oriented to person, oriented to place, oriented to time, oriented to situation, CN II-XII grossly intact. ABSENT: motor sensory deficit Skin exam: PRESENT: dry, intact, warm. ABSENT: cyanosis, rash Results Laboratory Results: WBC 17.6 10^3/uL (4.0-10.5) H 01/18/19 13:05 RBC 2.65 10^6/uL (3.72-5.28) L 01/18/19 13:05 Hgb 7.6 g/dL (12.0-15.5) L 01/18/19 13:05 Hct 23.4 % (36.0-47.0) L 01/18/19 13:05 MCV 88 fl (80-97) 01/18/19 13:05 MCH 28.7 pg (27.0-33.4) 01/18/19 13:05 MCHC 32.5 g/dL (32.0-36.0) 01/18/19 13:05 RDW 16.2 % (11.5-14.0) H 01/18/19 13:05 Plt Count 219 10^3/uL (150-450) 01/18/19 13:05 Lymph % (Auto) Not Reportable 01/18/19 12:30 [place] % (Auto) Not Reportable 01/18/19 12:30 Eos % (Auto) Not Reportable 01/18/19 12:30 Baso % (Auto) Not Reportable 01/18/19 12:30 Absolute Neuts (auto) Not Reportable 01/18/19 12:30 Absolute Lymphs (auto) Not Reportable 01/18/19 12:30 Absolute Monos (auto) Not Reportable 01/18/19 12:30 Absolute Eos (auto) Not Reportable 01/18/19 12:30 Absolute Basos (auto) Not Reportable 01/18/19 12:30 Total Counted 100 01/18/19 12:30 Seg Neutrophils % Not Reportable 01/18/19 12:30 Seg Neuts % (Manual) 79 % (42-78) H 01/18/19 12:30 Band Neutrophils % 4 % (3-5) 01/15/19 11:23 Lymphocytes % (Manual) 12 % (13-45) L 01/18/19 12:30 Atypical Lymphs % 1 % (0) 01/16/19 04:52 Monocytes % (Manual) 8 % (3-13) 01/18/19 12:30 Eosinophils % (Manual) 0 % (0-6) 01/18/19 12:30 Basophils % (Manual) 0 % (0-2) 01/18/19 12:30 Metamyelocytes % 1 % (0-1) 01/18/19 12:30 Abs Neuts (Manual) 13.5 10^3/uL (1.7-8.2) H 01/18/19 12:30 Abs Lymphs (Manual) 2.0 10^3/uL (0.5-4.7) 01/18/19 12:30 Abs Monocytes (Manual) 1.4 10^3/uL (0.1-1.4) 01/18/19 12:30 Absolute Eos (Manual) 0.0 10^3/uL (0.0-0.6) 01/18/19 12:30 Abs Basophils (Manual) 0.0 10^3/uL (0.0-0.2) 01/18/19 12:30 Nucleated RBCs 1 /100 WBC (0) 01/17/19 22:43 Toxic Granulation 1+ 01/15/19 11:23 Platelet Estimate Cancelled 01/11/19 15:18 Platelet Comment ADEQUATE 01/18/19 12:30 Polychromasia SLIGHT 01/18/19 12:30 Hypochromasia SLIGHT 01/18/19 12:30 Poikilocytosis 1+ 01/15/19 11:23 Basophilic Stippling PRESENT 01/15/19 11:23 Anisocytosis 1+ 01/18/19 12:30 Stomatocytes 1+ 01/15/19 11:23 PT 14.6 SEC (11.4-15.4) 01/11/19 15:28 INR 1.14 01/11/19 15:28 INR (Anticoag Therapy) Cancelled 01/11/19 15:18 Carbonic Acid 1.44 mmol/L (1.05-1.35) H 01/12/19 11:18 HCO3/H2CO3 Ratio 19:1 01/12/19 11:18 ABG pH 7.38 (7.35-7.45) 01/12/19 11:18 ABG pCO2 47.7 mmHg (35-45) H 01/12/19 11:18 ABG pO2 96.7 mmHg (80-100) 01/12/19 11:18 ABG HCO3 27.5 mmol/L (20-24) H 01/12/19 11:18 ABG Total CO2 29.0 mmol/L (21-25) H 01/12/19 11:18 ABG O2 Saturation 97.2 % (94-98) 01/12/19 11:18 ABG Base Excess 2.0 mmol/L 01/12/19 11:18 VBG pH 7.31 (7.30-7.42) 01/11/19 17:20 VBG pCO2 67.8 mmHg (35-63) H* 01/11/19 17:20 VBG HCO3 33.2 mmol/L (20-32) H 01/11/19 17:20 VBG Base Excess 5.2 mmol/L 01/11/19 17:20 FiO2 50% 01/12/19 11:18 Sodium 143.2 mmol/L (137-145) 01/18/19 12:30 Potassium 3.7 mmol/L (3.6-5.0) 01/18/19 12:30 Chloride 108 mmol/L (98-107) H 01/18/19 12:30 Carbon Dioxide 29 mmol/L (22-30) 01/18/19 12:30 Anion Gap 6 (5-19) 01/18/19 12:30 BUN 20 mg/dL (7-20) 01/18/19 12:30 Creatinine 2.13 mg/dL (0.52-1.25) H 01/18/19 12:30 Est GFR ( Amer) 28 (>60) L 01/18/19 12:30 Est GFR (Non-Af Amer) Cancelled 01/11/19 21:39 Est GFR (MDRD) Non-Af 23 (>60) L 01/18/19 12:30 Glucose 155 mg/dL (75-110) H 01/18/19 12:30 POC Glucose 109 mg/dL (70-110) 01/16/19 06:53 Hemoglobin A1c % 6.6 % (4.7-6.0) H 01/13/19 06:00 Lactic Acid 0.9 mmol/L (0.7-2.1) 01/11/19 15:28 Calcium 7.7 mg/dL (8.4-10.2) L 01/18/19 12:30 Phosphorus 5.4 mg/dL (2.5-4.5) H 01/17/19 05:24 Magnesium 1.6 mg/dL (1.6-2.3) 01/18/19 12:30 Total Bilirubin 0.3 mg/dL (0.2-1.3) 01/18/19 12:30 Direct Bilirubin 0.2 mg/dL (0.0-0.4) 01/18/19 12:30 Neonat Total Bilirubin Not Reportable 01/18/19 12:30 Neonat Direct Bilirubin Not Reportable 01/18/19 12:30 Neonat Indirect Bili Not Reportable 01/18/19 12:30 AST 30 U/L (14-36) 01/18/19 12:30 ALT 27 U/L (<35) 01/18/19 12:30 Alkaline Phosphatase 64 U/L (38-126) 01/18/19 12:30 Troponin I < 0.012 ng/mL 01/11/19 15:18 Total Protein 4.5 g/dL (6.3-8.2) L 01/18/19 12:30 Albumin 2.0 g/dL (3.5-5.0) L 01/18/19 12:30 Amylase < 30 U/L (30-110) L 01/16/19 04:52 Lipase 46.2 U/L (23-300) 01/16/19 04:52 EGFR Cancelled 01/11/19 21:39 Urine Color YELLOW 01/11/19 16:47 Urine Appearance SLIGHTLY-CLOUDY 01/11/19 16:47 Urine pH 6.0 (5.0-9.0) 01/11/19 16:47 Ur Specific [place] 1.020 01/11/19 16:47 Urine Protein 30 mg/dL (NEGATIVE) H 01/11/19 16:47 Urine Glucose (UA) NEGATIVE mg/dL (NEGATIVE) 01/11/19 16:47 Urine Ketones NEGATIVE mg/dL (NEGATIVE) 01/11/19 16:47 Urine Blood NEGATIVE (NEGATIVE) 01/11/19 16:47 Urine Nitrite (Reflex) NEGATIVE (NEGATIVE) 01/11/19 16:47 Urine Bilirubin NEGATIVE (NEGATIVE) 01/11/19 16:47 Urine Urobilinogen 4.0 mg/dL (<2.0) H 01/11/19 16:47 Leukocyte Esterase Rfl TRACE (NEGATIVE) H 01/11/19 16:47 Urine RBC (Auto) 4 /HPF 01/11/19 16:47 U Hyaline Cast (Auto) 4 /LPF 01/11/19 16:47 Urine Bacteria (Auto) TRACE /HPF 01/11/19 16:47 Urine WBC (Reflex) 3 /HPF 01/11/19 16:47 Squamous Epi Cells Auto 8 /HPF 01/11/19 16:47 Urine Mucus (Auto) RARE /LPF 01/11/19 16:47 Urine Creatinine 113.2 mg/dL (15-278) 01/16/19 07:50 Urine Creatinine 124.1 mg/dL (15-278) 01/16/19 07:50 Urine Ascorbic Acid NEGATIVE (NEGATIVE) 01/11/19 16:47 Urine Opiates Screen UNCONFIRMED POSITIVE 01/11/19 16:47 Urine Methadone Screen NEGATIVE 01/11/19 16:47 Ur Barbiturates Screen NEGATIVE 01/11/19 16:47 Ur Phencyclidine Scrn NEGATIVE 01/11/19 16:47 Ur Amphetamines Screen NEGATIVE 01/11/19 16:47 U Benzodiazepines Scrn NEGATIVE 01/11/19 16:47 Urine Cocaine Screen NEGATIVE 01/11/19 16:47 U Marijuana (THC) Screen NEGATIVE 01/11/19 16:47 Influenza A (Rapid) NEGATIVE (NEGATIVE) 01/11/19 17:06 Influenza B (Rapid) NEGATIVE (NEGATIVE) 01/11/19 17:06 Slides for Path Review Cancelled 01/11/19 15:18 Blood Type O POSITIVE 01/17/19 07:29 Blood Type Confirm O POSITIVE 01/17/19 07:29 Antibody Screen NEGATIVE 01/17/19 07:29 Crossmatch See Detail 01/17/19 07:29 01/11/19 15:18 Troponin I < 0.012 Impressions: Chest X-Ray 01/11/19 15:04 IMPRESSION: Cardiomegaly. Abdomen X-Ray 01/11/19 15:49 IMPRESSION: NO RADIOGRAPHIC EVIDENCE FOR ACUTE ABDOMINAL DISEASE. Abdomen/Pelvis CT 01/11/19 15:49 IMPRESSION: 1. Findings consistent with a ruptured rectosigmoid colon at the level of a large fecalith within the rectosigmoid colon expanding the lumen. The possibility of mucosal abnormality distal to the ruptured colon not be excluded. Extensive retroperitoneal air and air within the mesentery. Marked constipation. Chest X-Ray 01/12/19 00:00 IMPRESSION: Support devices as above. Chest X-Ray 01/13/19 06:00 IMPRESSION: Cardiomegaly. Bibasilar infiltrates or atelectasis. Interval extubation. Chest X-Ray 01/14/19 06:00 IMPRESSION: Minimal persistent bibasilar atelectasis although improved from prior study. KUB X-Ray 01/15/19 00:00 IMPRESSION: NO RADIOGRAPHIC EVIDENCE FOR ACUTE ABDOMINAL DISEASE. KUB X-Ray 01/15/19 13:53 IMPRESSION: NG tube appears to be in satisfactory position. Abdomen/Pelvis CT 01/16/19 00:00 IMPRESSION: 1. Laceration of the anterior urinary bladder with extravasation of the injected intravenous contrast. There is no evidence of ureteral injury. 2. Other secondary findings as detailed above. Plan Health Concerns: Blaader injury and wound healing. Need for urology input. Possible cystoscopy. Anemia and possible bleeding Plan of Treatment: Transfer to [facility]. Dr. Trena Jeff. for further care Goals: Definitive urology treatment. Find source of bleeding if there is one. Recovery of renal function. Critical Time: 45 Level of Care: ICU Stroke Is this a Stroke Patient?: No Acute Heart Failure - Is this a Heart Failure Patient?: No
--- NOTE | 2019-01-18 15:54 | PDOC PROGRESS REPORT ---
Subjective Progress Note for:: 01/18/19 Subjective:: Coordination of care consultation Reason For Visit: PERFORATED COLON Physical Exam Vital Signs: Temp Pulse Resp BP Pulse Ox 98.6 F 97 16 131/57 H 99 01/18/19 14:00 01/18/19 14:00 01/18/19 14:00 01/18/19 14:00 01/18/19 14:00 Intake & Output 01/17/19 01/18/19 01/19/19 06:59 06:59 06:59 Intake Total 1900 2931 1079 Output Total 1985 1225 400 Balance -85 1706 679 Weight 119.6 kg 122.9 kg Results Laboratory Results: 01/18/19 13:05 01/18/19 12:30 01/17/19 01/17/19 01/18/19 07:29 22:43 12:30 WBC 17.5 H 16.9 H RBC 3.23 L 2.50 L Hgb 9.4 L D 7.3 L D Hct 28.3 L 22.1 L MCV 88 88 MCH 29.2 29.1 MCHC 33.2 33.0 RDW 15.8 H 16.2 H Plt Count 204 229 Seg Neutrophils % Not Reportable Not Reportable Sodium Potassium Chloride Carbon Dioxide Anion Gap BUN Creatinine Est GFR ( Amer) Glucose Calcium Magnesium Total Bilirubin AST Alkaline Phosphatase Total Protein Albumin Blood Type O POSITIVE Antibody Screen NEGATIVE 01/18/19 01/18/19 12:30 13:05 WBC 17.6 H RBC 2.65 L Hgb 7.6 L Hct 23.4 L MCV 88 MCH 28.7 MCHC 32.5 RDW 16.2 H Plt Count 219 Seg Neutrophils % Sodium 143.2 Potassium 3.7 Chloride 108 H Carbon Dioxide 29 Anion Gap 6 BUN 20 Creatinine 2.13 H Est GFR ( Amer) 28 L Glucose 155 H Calcium 7.7 L Magnesium 1.6 Total Bilirubin 0.3 AST 30 Alkaline Phosphatase 64 Total Protein 4.5 L Albumin 2.0 L Blood Type Antibody Screen 01/11/19 15:18 Troponin I < 0.012 Impressions: Abdomen X-Ray 01/11/19 15:49 IMPRESSION: NO RADIOGRAPHIC EVIDENCE FOR ACUTE ABDOMINAL DISEASE. Chest X-Ray 01/14/19 06:00 IMPRESSION: Minimal persistent bibasilar atelectasis although improved from prior study. KUB X-Ray 01/15/19 13:53 IMPRESSION: NG tube appears to be in satisfactory position. Abdomen/Pelvis CT 01/16/19 00:00 IMPRESSION: 1. Laceration of the anterior urinary bladder with extravasation of the injected intravenous contrast. There is no evidence of ureteral injury. 2. Other secondary findings as detailed above. Renal Ultrasound 01/18/19 13:51 IMPRESSION: No hydronephrosis. Assessment & Plan - Diagnosis (1) Post-operative state Is this a current diagnosis for this admission?: Yes Plan: Assessment, discussion, coordination of care. This 63-year-old white female who is 6 days status post exploratory laparotomy, sigmoid colectomy, protective ileostomy for rectosigmoid colon perforation due to stercoral ulcer by Dr. Galvez did well until 48 hours ago when she developed bilateral pelvic drain output consistent with a urine leak. CT scan of the abdomen and pelvis confirmed a hole in the bladder anteriorly. The patient was subsequently taken back to the operating room Dr. Rex Rodriguez who performed primary bladder repair. Postoperatively the patient did well initially, however the last 24 hours has had hematuria difficult to clear with bladder irrigations. Furthermore patient has dropped her hemoglobin on 2 occasions despite receiving blood transfusions x3. Her creatinine is now up to 2.13. In the intensive care unit, on nasal cannula oxygen. Her mobility has been somewhat limited due to her size and multiple support lines. With the change in clinical picture, Dr. Patiño spoke with multiple colleagues inside and outside of [facility]. Given the complexity of the patient's clinical situation, in the absence of urologic expertise on medical premises, transfer to a center with higher level of care was recommended. Dr. Matthew claudio, of [facility] was willing to accept the patient in transfer and coordinate urologic consultation upon patient's arrival. Approximately 30 minutes was spent conferring with colleagues on the telephone Saturday. Discussion was also had with patient, patient's nurse, and Dr. Dodd, hazmat technician in the ICU caring for the patient over the weekend. Similarly 30 minutes was spent with these discussions as well. We anticipate the patient being transferred January 18. Upon stabilization of patient's urologic and renal condition, we anticipate the patient being transferred back to [facility] for ongoing care. (2) Bladder perforation, intraoperative Is this a current diagnosis for this admission?: Yes (3) Perforated sigmoid colon Is this a current diagnosis for this admission?: Yes (4) Steroid dependent Is this a current diagnosis for this admission?: Yes - Time Time Spent with patient: 35 or more minutes
[2019-01-18] MEDS ORDERED: AZELASTINE NS SCH (18:00)
[2019-01-18] MEDS ORDERED: FUROSEMIDE INJ/PF 40 MG/4 ML SDV ONE (18:34)
[2019-01-18] MEDS ORDERED: FUROSEMIDE INJ/PF 20 MG/2 ML SDV IV ONE (18:45)
[2019-01-18 21:48] VITALS: BP 145/72
== END 2019-01-18 21:50 | disposition short-term general hospital (02) | DRG 329 ==
LOC: ER 14:56 → EH 19:18 → ICU 01-12 00:46
PROVIDERS: ADMIT Surgery; ATTEND Surgery
PROC: 0DBN0ZZ Excision of Sigmoid Colon, Open Approach (ICD-10-PCS; principal; 2019-01-12)
PROC: 0D1B0Z4 Bypass Ileum to Cutaneous, Open Approach (ICD-10-PCS; 2019-01-12)
PROC: 0DJD8ZZ Inspection of Lower Intestinal Tract, Via Natural or Artificial Opening Endoscopic (ICD-10-PCS; 2019-01-12)
PROC: 02HV33Z Insertion of Infusion Device into Superior Vena Cava, Percutaneous Approach (ICD-10-PCS; 2019-01-12)
PROC: 0D9670Z Drainage of Stomach with Drainage Device, Via Natural or Artificial Opening (ICD-10-PCS; 2019-01-15)
PROC: 0TQB0ZZ Repair Bladder, Open Approach (ICD-10-PCS; 2019-01-16)
PROC: 30233N1 Transfusion of Nonautologous Red Blood Cells into Peripheral Vein, Percutaneous Approach (ICD-10-PCS; 2019-01-17)
DX: K63.1 Perforation of intestine (nontraumatic) (principal); K65.2 Spontaneous bacterial peritonitis; N99.71 Accidental puncture and laceration of a genitourinary system organ or structure during a genitourinary system procedure; E66.01 Morbid (severe) obesity due to excess calories; E03.9 Hypothyroidism, unspecified; R33.9 Retention of urine, unspecified; R11.14 Bilious vomiting; R31.9 Hematuria, unspecified; D64.9 Anemia, unspecified; M32.9 Systemic lupus erythematosus, unspecified; M19.90 Unspecified osteoarthritis, unspecified site; I10 Essential (primary) hypertension; K59.00 Constipation, unspecified; K66.8 Other specified disorders of peritoneum; K66.0 Peritoneal adhesions (postprocedural) (postinfection); G47.33 Obstructive sleep apnea (adult) (pediatric); Z92.25 Personal history of immunosuppression therapy; Z79.52 Long term (current) use of systemic steroids
CPT/HCPCS: 00790; 00840; 36415; 36430; 51702; 71045; 74018; 74019; 74176; 74178; 76770; 80048; 80053; 80307; 81001; 82150; 82570; 82803; 82962; 83036; 83605; 83690; 83735; 84100; 84484; 85025; 85027; 85610; 86850; 86900; 86901; 86920; 87040; 87070; 87075; 87077; 87086; 87186; 87205; 87804; 88307; 93005; 93010; 94002; 94660; 94799; 96361; 96365; 96375; 99233; 99285; 99291; A4315; C1751; C1758; C9113; J0131; J0330; J1100; J1170; J1450; J1650; J1720; J1885; J1940; J2060; J2175; J2250; J2270; J2370; J2405; J2543; J2704; J2710; J2765; J2930; J3010; J3370; J3480; J3490; J7030; J7050; J7060; J7120; J7121; P9016; Q9968